=== PATIENT | female | born 1950 | race Caucasian/White ===

== ENCOUNTER → 2019-10-27 13:18 | Outpatient (CLI) | payer MEDICARE, OTHER, SELFPAY ==
--- NOTE | ~2019-10-27 | XR_ITS ---
EXAMINATION: XR scoliosis survey EXAM DATE: 10/27/2019 13:55 INDICATION: Scoliosis. TECHNIQUE: Frontal and lateral projections of the thoracic spine, frontal and lateral projection of the lumbosacral spine. Comparison is made to prior examination from 12/22/2013. FINDINGS: There has been interval placement of Miranda rods with supporting pedicular screws at a ll levels from about T3 through the sacrum. There is anterior, interbody fusion L5-S1. Interbody fusi on L4-5. Moderate to severe loss of the disc heights from T12 through L4. There is no hardware fractu re. Lower lumbar laminectomies compared to prior study. Paraspinal soft tissue is unremarkable. There is 5 degrees of thoracolumbar levoscoliosis as measured between T12 and L3. There is 8 degrees of lower lumbar dextroscoliosis. There is about 7 degrees of thoracic dextroscoliosis. IMPRESSION: 1. Mild thoracal lumbar scoliosis. 2. Intact Miranda rods. Reviewed, dictated and finalized at location A.
== END ==
PROVIDERS: PCP Family Medicine
DX: M41.56 Other secondary scoliosis, lumbar region (principal)
CPT/HCPCS: 72082

== ENCOUNTER 2019-12-29 18:08 | Outpatient (CLI) | payer MEDICARE, OTHER, SELFPAY ==
--- NOTE | ~2019-12-29 | XR_ITS ---
EXAMINATION: XR scoliosis survey DATE: 12/29/2019 18:40 INDICATION: Scoliosis due to degenerative disease of spine. TECHNIQUE: Anteroposterior and lateral views of the entire spine were obtained. COMPARISON: Spine radiographs 10/27/2019 FINDINGS: There are hypoplastic ribs at T12. There are changes of posterior fusion procedure from T3 to the sacrum and iliac bones with screws and vertical rods. There are changes of anterior fusion pro cedure at L5-S1 with plate and screws. There are changes of anterior fusion procedure at L4-L5 with i nterbody device. There is 10 degrees dextroscoliosis from T3 to T11 by the Aleman method. There is 13 d egrees levoscoliosis from T11 to L2. There is 2 mm anterolisthesis of C4 on C5 and 3 mm retrolisthesi s of L1 and L2. There is moderate degenerative disc disease in cervical spine, worst at C5-C6 and C6- C7. There is mild to moderately decreased disc height at most levels in thoracic and lumbar spine. Th ere are endplate osteophytes at all levels. IMPRESSION: 1. Moderate spondylosis of the cervical, thoracic, and lumbar spine. 2. Scoliosis. 3. Posterior fusion procedure from T2 to the sacrum and iliac bones. Anterior fusion procedure at L4- L5 and L5-S1. Reviewed, dictated and finalized at location E. IMPRESSION: 1. Moderate spondylosis of the cervical, thoracic, and lumbar spine. 2. Scoliosis. 3. Posterior fusion procedure from T2 to the sacrum and iliac bones. Anterior f usion procedure at L4-L5 and L5-S1.
== END 2019-12-29 18:09 | disposition home or self-care (01) ==
PROVIDERS: PCP Family Medicine
DX: M41.9 Scoliosis, unspecified (principal); M47.892 Other spondylosis, cervical region; M47.894 Other spondylosis, thoracic region; M47.896 Other spondylosis, lumbar region; Z98.1 Arthrodesis status
CPT/HCPCS: 72082

== ENCOUNTER → 2020-05-04 13:31 | Outpatient (CLI) | payer MEDICARE, OTHER, SELFPAY ==
--- NOTE | ~2020-05-04 | XR_ITS ---
EXAMINATION: XR scoliosis survey EXAM DATE: 05/04/2020 14:03 INDICATION: Scoliosis. Miranda rods. TECHNIQUE: Cervicothoracic frontal and lateral projections. Thoracic frontal and lateral projections . Lumbosacral frontal and lateral projections. Comparison is made to prior examination from 12/29/2019 . FINDINGS: There are intact Miranda rods from the upper thoracic region through the sacroiliac join ts. There is lucency surrounding the screws bridging the sacroiliac joints. There is no hardware frac ture. There is interbody fusion L4-5 and L5-S1. Minimal if any scoliosis appreciated. Probable lumbar laminectomies. No endplate erosive change. There is moderate disc disease at C5-6 and C6-7. There is 3 mm anterolisthesis C4 on C5. IMPRESSION: 1. Intact thoracolumbar Miranda rods. 2. Lucency surrounding sacroiliac screws suggesting some component of loosening. Reviewed, dictated and finalized at location G. IMPRESSION: 1. Intact thoracolumbar Miranda rods. 2. Lucency surrounding sacroiliac screws suggesting some component of loosenin g.
== END ==
PROVIDERS: PCP Family Medicine
DX: M41.50 Other secondary scoliosis, site unspecified (principal)
CPT/HCPCS: 72082

== ENCOUNTER 2021-02-08 09:49 | Outpatient (CLI) | payer MEDICARE, OTHER, SELFPAY ==
--- NOTE | ~2021-02-08 | MM_ITS ---
EXAMINATION: MM screening [facility] BI w jef HISTORY: Screening TECHNIQUE: Craniocaudal and mediolateral oblique 3-D tomosynthesis images were obtained and synthetic 2-D images were generated. CAD analysis was submitted and interpreted. COMPARISON: Comparison to multiple prior studies sequentially, with oldest reviewed study dated 09/03. BREAST PARENCHYMAL COMPOSITION: There are scattered areas of fibroglandular density. FINDINGS: There are clustered indeterminate calcifications in the upper outer quadrant of the right b reast, middle third. The left breast is stable without evidence for malignancy. IMPRESSION: 1. Clustered punctate indeterminate right breast calcifications. 2. Magnification views are recommended. BI-RADS Category 0: Incomplete: Needs additional imaging evaluation. Reviewed, dictated and finalized at location A.
== END 2021-02-08 09:50 | disposition home or self-care (01) ==
LOC: ANHIMG 09:52
PROVIDERS: PCP Family Medicine; Visit Provider Family Medicine
DX: Z12.31 Encounter for screening mammogram for malignant neoplasm of breast (principal); R92.8 Other abnormal and inconclusive findings on diagnostic imaging of breast
CPT/HCPCS: 77063; 77067

== ENCOUNTER 2021-03-08 11:26 | Outpatient (CLI) | payer MEDICARE, OTHER, SELFPAY ==
--- NOTE | ~2021-03-08 | MMUS_ITS ---
EXAMINATION: MM diagnostic mammo unilat RT, US breast RT limited HISTORY: Clustered punctate indeterminate right breast calcifications reported on 02/08/2021 screening mammogram TECHNIQUE: Additional 3-D ML tomosynthesis images of the right breast were performed and synthetic 2- D images were generated. Magnification views of right breast CAD analysis was submitted and interpret ed. High resolution upper outer and lower-outer right breast ultrasound was performed. COMPARISON: 02/08/2021 bilateral digital screening mammogram FINDINGS: MAMMOGRAPHIC FINDINGS: Scattered occasional probably benign clustered microcalcifications are identified in the outer right breast. Ultrasound of the upper outer and lower-outer quadrants of the right breast was performed. ULTRASOUND: No suspicious mass or shadowing is identified in the upper outer quadrant or lower outer quadrant of the right breast IMPRESSION: 1. Probably benign microcalcifications 2. 6 month diagnostic right mammogram follow-up is recommended BI-RADS category 3, probably benign findings. Reviewed, dictated and finalized at location A. IMPRESSION: 1. Probably benign microcalcifications 2. 6 month diagnostic right mammogram follow-up is recommended BI-RADS category 3, probably benign findings.
== END 2021-03-08 11:27 | disposition home or self-care (01) ==
LOC: ANHIMG 11:28
PROVIDERS: PCP Family Medicine; Visit Provider Family Medicine
DX: R92.8 Other abnormal and inconclusive findings on diagnostic imaging of breast (principal)
CPT/HCPCS: 76642; 77065

== ENCOUNTER 2021-04-08 12:03 | Emergency (ER) | payer MEDICARE, OTHER, SELFPAY ==
[2021-04-08 12:13] VITALS: BP 140/76; PULSE 61; RESP 16; TEMP 36.6; O2SAT 98
--- NOTE | 2021-04-08 12:17 | ED.EAR ---
HPI - Ear Problem General Chief complaint: Ear Stated complaint: Lightheaded,Bilateral Ears Source: patient, RN notes reviewed and old records reviewed Mode of arrival: ambulatory Limitations: no limitations History of Present Illness HPI Narrative: 70-year-old female who presents to [facility] with complaints of bilateral ear pressure, fullness in ear for the past 2 months with increase in the past 2-3 days, denies any fevers, chills or any sweats.. Patient also reports that she has been experiencing some feelings of being lightheaded when she first arose this morning which did get better after being up for awhile. Patient denies any OTC medications taken for her symptoms. denies sore throat,does have history of sinus allergies and takes Zyrtec daily. Patient states that she has had both of her Covid vaccinations. Location: bilateral Related Data Home Medications Medication Instructions Recorded Confirmed ferrous sulfate 325 mg (65 mg 325 mg PO BID tablet 09/18/19 04/08/21 iron) tablet atenolol 50 mg PO DAILY 04/08/21 04/08/21 atorvastatin 10 mg PO DAILY 04/08/21 04/08/21 baclofen 10 mg PO TID 04/08/21 04/08/21 calcium carbonate-vit D3-min 1 tablet PO DAILY 04/08/21 04/08/21 [Calcium 600 + Minerals] magnesium 800 mg PO DAILY 04/08/21 04/08/21 hp-ayx-TS-Dr-Fu-nnsawsl-lutein 1 tablet PO DAILY 04/08/21 04/08/21 [Centrum] omega-3 fatty acids-fish oil 1 cap PO DAILY 04/08/21 04/08/21 [[place] 3 Fish Oil] temazepam 15 mg PO HS PRN 04/08/21 04/08/21 Allergies Allergy/AdvReac Type Severity Reaction Status Date / Time No Known Allergies Allergy Verified 04/08/21 16:29 Review of Systems Review of Systems: CONSTITUTIONAL: Denies fever, chills, or sweats. EYES: Denies visual changes, redness, or discharge. ENT: Some clear rhinorrhea, no congestion,no sore throat, bilateral ear pressure and feelings of fullness. CARDIOVASCULAR: Denies chest pain, palpitations, or edema. RESPIRATORY: Denies cough or dyspnea. GASTROINTESTINAL: Denies abdominal pain, nausea, vomiting, or diarrhea. GENITOURINARY: Denies dysuria or hematuria. SKIN: Denies rash or itching. MUSCULOSKELETAL: Denies back pain, joint pain, or myalgia. NEUROLOGIC: Denies headache, numbness, or weakness.episode of feeling lightheaded PSYCHIATRIC: Denies anxiety or depression. All systems reviewed & are unremarkable except as noted in HPI and below PMFSH Past Medical History Medical History (Updated 04/08/21 @ 19:25 by Estefany Bennett NP) Acute deep vein thrombosis (DVT) of both lower extremities stop eliquis September 11, 2019 Anemia Arthritis Hyperlipidemia Hypertension Sleep apnea Surgical History Surgical History H/O abdominoplasty H/O discectomy H/O spinal fusion H/O: hysterectomy History of appendectomy History of total bilateral knee replacement Family History Family History Mother Family history of cardiovascular disease Family history of alcoholism Family history of coronary artery disease Father Family history of malignant neoplasm Family history of alcoholism Grandparent Diabetes mellitus Family history of malignant neoplasm of breast in first degree relative Sibling Hypertension Family history of alcoholism Cerebrovascular accident Social History Social History (Updated 04/08/21 @ 19:25 by Estefany Bennett NP) Smoking status: Never smoker Alcohol intake: current Alcohol use details: social Substance use: never Living arrangements: with family Gender identity (if verbalized by the patient): Female Comments At time of signature, agree with nursing past medical, surgical, social and family history. There is no relevant family history pertinent to the presenting complaint Exam Narrative: GENERAL: Well-appearing, well-nourished, and in no acute distress. HEA
== END 2021-04-08 12:54 | disposition home or self-care (01) ==
PROVIDERS: Emergency Provider Registered Nurse; PCP Family Medicine
DX: H69.93 Unspecified Eustachian tube disorder, bilateral (principal); R42 Dizziness and giddiness; Z86.718 Personal history of other venous thrombosis and embolism; M19.90 Unspecified osteoarthritis, unspecified site; E78.5 Hyperlipidemia, unspecified; I10 Essential (primary) hypertension; G47.30 Sleep apnea, unspecified; Z96.653 Presence of artificial knee joint, bilateral
CPT/HCPCS: 99213; G0463

== ENCOUNTER 2022-07-13 01:24 | Day surgery (SDC) | payer MEDICARE, OTHER, SELFPAY ==
[2022-06-27 14:45] VITALS: BMI 31.7
--- NOTE | 2022-07-12 15:21 | PM.HPGS ---
History of Present Illness History of Present Illness Consent: Risks, benefits, and alternatives have been discussed and questions answered. Patient agrees to proceed with procedure. Chief complaint: Hx of colon polyp Narrative: Sri Larsen is a 71 year old female Referred for colon cancer screening. Review of Systems Review of Systems: All systems reviewed & are unremarkable except as noted in HPI and below PMFSH Past Medical History Medical History Acute deep vein thrombosis (DVT) of both lower extremities stop eliquis September 11, 2019 Anemia Arthritis Hyperlipidemia Hypertension Sleep apnea Surgical History Surgical History H/O abdominoplasty H/O discectomy H/O spinal fusion H/O: hysterectomy History of appendectomy History of total bilateral knee replacement Family History Family History Mother Family history of cardiovascular disease Family history of alcoholism Family history of coronary artery disease Father Family history of malignant neoplasm Family history of alcoholism Grandparent Diabetes mellitus Family history of malignant neoplasm of breast in first degree relative Sibling Hypertension Family history of alcoholism Cerebrovascular accident Social History Social History Smoking status: Never smoker Alcohol intake: current Drinks per week: 1 Alcohol use details: social Substance use: never Living arrangements: with family Gender identity (if verbalized by the patient): Female Spiritual care concerns: No Meds Home Medications and Allergies Home Medications Medication Instructions Recorded Confirmed Type ferrous sulfate 325 mg (65 mg 325 mg PO BID 09/18/19 07/13/22 History iron) tablet calcium carb-vit D3-minerals 600 1 tablet PO DAILY 04/08/21 07/13/22 History mg calcium-200 unit tablet (Calcium 600 + Minerals) magnesium 200 mg tablet 800 mg PO DAILY 04/08/21 07/13/22 History jmusmnvp-qqh-PR 0.4 mg-calcium 162 1 tablet PO DAILY 04/08/21 07/13/22 History mg-iron 18 th-adjnvjq-axinse tablet omega-3 fatty acids-fish oil 684 1 cap PO DAILY 04/08/21 07/13/22 History mg-1,200 mg capsule,delayed release atorvastatin 10 mg tablet See Rx Instructions .Route 12/22/21 07/13/22 Rx .COMPLEX #90 tabs temazepam 15 mg capsule 15 mg PO QHS PRN sleep #90 caps 03/10/22 07/13/22 Rx gabapentin 300 mg capsule See Rx Instructions .Route 03/29/22 07/13/22 Rx .COMPLEX #180 caps atenolol 50 mg tablet See Rx Instructions .Route 04/14/22 07/13/22 Rx .COMPLEX #90 tabs baclofen 10 mg tablet See Rx Instructions .Route 04/14/22 07/13/22 Rx .COMPLEX #270 tabs tramadol 50 mg tablet 50 mg PO Q6H PRN pain #120 tabs 05/12/22 07/13/22 Rx Allergies Allergy/AdvReac Type Severity Reaction Status Date / Time No Known Allergies Allergy Verified 07/13/22 10:53 Exam Resp: Auscultation: clear to auscultation bilaterally Cardio: Rate: regular rate Rhythm: regular rhythm GI: GI Palp: Yes Soft to palpation and No Tenderness to palpation present (GI) Assessment and Plan Assessment and plan (1) Colon cancer screening: Code(s): Z12.11 - Encounter for screening for malignant neoplasm of colon Status: Acute Assessment and Plan: Colonoscopy with possible biopsy or polypectomy or cautery or injection of substances.
[2022-07-13 10:56] VITALS: BP 157/70; PULSE 63; RESP 18; TEMP 36.2; O2SAT 100; BMI 31.7
[2022-07-13] MEDS: LACTATED RINGERS 1,000 ML 150 ML IV CONT (11:00)
--- NOTE | 2022-07-13 11:10 | WPDANESEPPF ---
Anes - Initial Pre Proc Eval Procedure: Operation Date: 07/13/22 11:30 Proposed Procedures p Screening Colonoscopy - Ata Nichols MD Date/Time: 07/13/22 11:10 Surgeon: Ata Nichols MD Pre Op Diagnosis: Hx of colon polyp Patient Data Age: 71 Gender: F Height: 1.7 m Weight: 91.9 kg Last Vital Signs Temp 36.2 C L 07/13/22 10:56 Pulse 63 07/13/22 10:56 Resp 18 07/13/22 10:56 BP 157/70 H 07/13/22 10:56 Pulse Ox 100 07/13/22 10:56 O2 Del Method Room Air 07/13/22 10:56 Allergies Allergy/AdvReac Type Severity Reaction Status Date / Time No Known Allergies Allergy Verified 07/13/22 10:53 Home Medications Medication Instructions Recorded Confirmed Type ferrous sulfate 325 mg (65 mg 325 mg PO BID 09/18/19 07/13/22 History iron) tablet calcium carb-vit D3-minerals 600 1 tablet PO DAILY 04/08/21 07/13/22 History mg calcium-200 unit tablet (Calcium 600 + Minerals) magnesium 200 mg tablet 800 mg PO DAILY 04/08/21 07/13/22 History jxhtinlu-nut-KO 0.4 mg-calcium 162 1 tablet PO DAILY 04/08/21 07/13/22 History mg-iron 18 lt-uklyvpm-cyskaq tablet omega-3 fatty acids-fish oil 684 1 cap PO DAILY 04/08/21 07/13/22 History mg-1,200 mg capsule,delayed release atorvastatin 10 mg tablet See Rx Instructions .Route 12/22/21 07/13/22 Rx .COMPLEX #90 tabs temazepam 15 mg capsule 15 mg PO QHS PRN sleep #90 caps 03/10/22 07/13/22 Rx gabapentin 300 mg capsule See Rx Instructions .Route 03/29/22 07/13/22 Rx .COMPLEX #180 caps atenolol 50 mg tablet See Rx Instructions .Route 04/14/22 07/13/22 Rx .COMPLEX #90 tabs baclofen 10 mg tablet See Rx Instructions .Route 04/14/22 07/13/22 Rx .COMPLEX #270 tabs tramadol 50 mg tablet 50 mg PO Q6H PRN pain #120 tabs 05/12/22 07/13/22 Rx Patient hx anesthesia problems: none Family hx anesthesia problems: none Results Review: All pre-operative results and documents have been reviewed as part of the pre-operative evaluation. [facility] Past Medical History Medical History Acute deep vein thrombosis (DVT) of both lower extremities stop eliquis September 11, 2019 Anemia Arthritis Hyperlipidemia Hypertension Sleep apnea Surgical History Surgical History H/O abdominoplasty H/O discectomy H/O spinal fusion H/O: hysterectomy History of appendectomy History of total bilateral knee replacement Family History Family History Mother Family history of cardiovascular disease Family history of alcoholism Family history of coronary artery disease Father Family history of malignant neoplasm Family history of alcoholism Grandparent Diabetes mellitus Family history of malignant neoplasm of breast in first degree relative Sibling Hypertension Family history of alcoholism Cerebrovascular accident Social History Social History Smoking status: Never smoker Alcohol intake: current Drinks per week: 1 Alcohol use details: social Substance use: never Living arrangements: with family Gender identity (if verbalized by the patient): Female Spiritual care concerns: No Anes - Eval Final PreProcedure Day of Procedure 07/13/22 11:10 Patient weight: obese Heart: regular rate and rhythm Lungs: clear to auscultation Airway: Mallampati scale class II Neurological: alert and oriented Last oral intake: >/= 8 hours ASA classification: III Emergent: no Anesthetic plan: proceed Anesthesia type and monitoring: general GIVS and standard monitoring Results Review: All pre-operative results and documents have been reviewed as part of the pre-operative evaluation. Informed Consent: The patient's anesthetic plan and its attendant risks and benefits were discusse
[2022-07-13 11:50] VITALS: BP 115/54; PULSE 64; RESP 18; O2SAT 98
[2022-07-13 12:00] VITALS: BP 146/71; PULSE 58; RESP 19; O2SAT 100
[2022-07-13 12:10] VITALS: BP 152/75; PULSE 59; RESP 16; O2SAT 100
== END 2022-07-13 12:28 | disposition home or self-care (01) ==
PROVIDERS: PCP Emergency Medicine; Visit Provider Internal Medicine Gastroenterology
PROC: 0DJD8ZZ Inspection of Lower Intestinal Tract, Via Natural or Artificial Opening Endoscopic (ICD-10-PCS; CPT 45378; principal; 2022-07-13 11:30)
DX: Z12.11 Encounter for screening for malignant neoplasm of colon (principal); K57.30 Diverticulosis of large intestine without perforation or abscess without bleeding; Z86.010 Personal history of colon polyps; D64.9 Anemia, unspecified; E78.5 Hyperlipidemia, unspecified; I10 Essential (primary) hypertension; G47.30 Sleep apnea, unspecified; Z86.718 Personal history of other venous thrombosis and embolism; Z82.49 Family history of ischemic heart disease and other diseases of the circulatory system; Z81.1 Family history of alcohol abuse and dependence; F10.90 Alcohol use, unspecified, uncomplicated; E66.9 Obesity, unspecified; Z68.31 Body mass index [BMI] 31.0-31.9, adult; Z79.891 Long term (current) use of opiate analgesic; Z79.899 Other long term (current) drug therapy
CPT/HCPCS: G0105; J2704; J7120

== ENCOUNTER 2022-11-23 08:33 | Outpatient (CLI) | payer MEDICARE, SELFPAY ==
[2022-11-23 18:41] LABS: Alanine Aminotransferase 30 U/L (6-35); Albumin Level 4.2 g/dL (3.5-5.1); Alkaline Phosphatase 72 U/L (38-126); Anion Gap 7 mmol/L (8-16); Aspartate Amino Transferase 31 U/L (14-36); Bilirubin,Total 0.5 mg/dL (0.2-1.3); Blood Urea Nitrogen 21 mg/dL (7-17); Carbon Dioxide 27 mmol/L (22-30); Chloride 107 mmol/L (98-107); Cholesterol 148 mg/dL (0-200); Estimated Glomerular Filt Rate 54; Glucose 105 mg/dL (65-110); HDL Direct 52 mg/dL; Potassium 4.2 mmol/L (3.4-5.0); Sodium 141 mmol/L (137-145); Triglycerides 131 mg/dL (<150)
[2022-11-23 18:52] LABS: LDL Cholesterol Direct 63 mg/dL
== END 2022-11-23 08:34 | disposition home or self-care (01) ==
LOC: ANHGOSHLAB 08:36
PROVIDERS: PCP Emergency Medicine; Visit Provider Emergency Medicine
DX: I10 Essential (primary) hypertension (principal); E66.9 Obesity, unspecified
CPT/HCPCS: 36415; 80053; 80061

== ENCOUNTER 2023-01-07 21:22 | Emergency (ER) | payer MEDICARE, SELFPAY ==
[2023-01-07 21:29] VITALS: BP 150/65; PULSE 92; RESP 18; TEMP 36.5; O2SAT 98
[2023-01-07 21:57] VITALS: PULSE 85
[2023-01-07 21:58] VITALS: BP 134/77; PULSE 86; RESP 16; TEMP 36.6; O2SAT 98
[2023-01-07 22:09] LABS: Basophils Absolute Auto 0.1 K/mm3 (0.0-0.1); Eosinophils Absolute Auto 0.2 K/mm3 (0-0.3); Eosinophils Percent Auto 2.6 % (0-4.4); Immature Granulocyte Absolute 0.02 K/mm3 (0.00-0.031); Immature Granulocyte Percent A 0.3 % (0-0.5); Lymphocytes Absolute Auto 1.87 K/mm3 (0.9-3.2); Lymphocytes Percent Auto 26.9 % (18.3-44.2); Mean Corpuscular HGB Conc 32.4 g/dl (32-36); Mean Corpuscular Hemoglobin 28.3 pg (26-34); Mean Corpuscular Volume 87.3 fl (80-100); Mean Platelet Volume 10.6 fl (7.4-10.4); Monocytes Absolute Auto 0.5 K/mm3 (0.1-0.6); Monocytes Percent Auto 7.2 % (2.6-8.5); Neutrophils Absolute Auto 4.3 K/mm3 (1.3-6.7); Platelet Count Result 221 k/mm3 (150-375); Red Blood Count 4.24 M/mm3 (4.2-5.4); Red Cell Distribution Width 14.8 % (11.5-14.5)
--- NOTE | 2023-01-07 22:18 | ED.GENADULT ---
HPI - General Adult General Chief complaint: Unspecified Stated complaint: not acting right. took meds and had wine. Time Seen by Provider: 01/07/23 21:33 History of Present Illness HPI narrative: 72-year-old female presented to the emergency department for evaluation of altered mental status. Family states that the patient seemed more confused prior to arrival but that the episode has resolved. Patient states that at approximately 745 she was drinking red wine and did take her nighttime sleeping pill, temazepam. Family states that approximately 8:30 PM patient began becoming more somnolent. Patient does not recall the episode. Upon arrival to the ED family states that the patient is more alert and appropriate and is currently at her baseline. Patient denies any complaints at this time. Patient does have a prior history of a spinal infection and is on doxycycline twice daily forever. Related Data Home Medications Medication Instructions Recorded Confirmed ferrous sulfate 325 mg (65 mg 325 mg PO BID 09/18/19 10/10/22 iron) tablet calcium carb-vit D3-minerals 600 1 tablet PO DAILY 04/08/21 10/10/22 mg calcium-200 unit tablet (Calcium 600 + Minerals) magnesium 200 mg tablet 800 mg PO DAILY 04/08/21 10/10/22 htnyhoph-ijp-FZ 0.4 mg-calcium 162 1 tablet PO DAILY 04/08/21 10/10/22 mg-iron 18 ry-etvdgkb-egetvp tablet omega-3 fatty acids-fish oil 684 1 cap PO DAILY 04/08/21 10/10/22 mg-1,200 mg capsule,delayed release Allergies Allergy/AdvReac Type Severity Reaction Status Date / Time No Known Allergies Allergy Verified 10/10/22 11:29 Review of Systems Review of Systems: All systems reviewed & are unremarkable except as noted in HPI and below [facility] Past Medical History Medical History Acute deep vein thrombosis (DVT) of both lower extremities stop eliquis September 11, 2019 Anemia Arthritis Hyperlipidemia Hypertension Sleep apnea Surgical History Surgical History H/O abdominoplasty H/O discectomy H/O spinal fusion H/O: hysterectomy History of appendectomy History of total bilateral knee replacement Family History Family History Mother Family history of cardiovascular disease Family history of alcoholism Family history of coronary artery disease Father Family history of malignant neoplasm Family history of alcoholism Grandparent Diabetes mellitus Family history of malignant neoplasm of breast in first degree relative Sibling Hypertension Family history of alcoholism Cerebrovascular accident Social History Social History Smoking status: Never smoker Alcohol intake: current Drinks per week: 1 Alcohol use details: social Substance use: never Lack of Transportation: No Lack of Food: Never True Current Housing: I Have Housing Concerned About Future Housing: No Difficulty Paying Gas/Electric Bills: No Difficulty Paying for Meds: No Currently Unemployed: No Education: High School Diploma/GED Difficulty w/ Childcare or Family Care: No Living arrangements: with family Gender identity (if verbalized by the patient): Female Spiritual care concerns: No Exam Narrative: APPEARANCE: Well appearing, no pain, no distress, well-nourished. HEAD: normocephalic, atraumatic. EYES: PERRLA/EOMI, conjunctivae clear. NOSE: Normal no drainage EARS:TMS clear with good light reflex. THROAT: Pharynx clear, no exudate. NECK: Supple. No adenopathy, no masses. RESPIRATORY: Airway patent, respirations nonlabored. Clear to auscultation bilaterally, no rales, rhonchi, wheezing. CARDIOVASCULAR: Regular rate and rhythm without murmurs rubs or gallops. ABDOMINAL: Soft, nontender, nondistended, normal bowel sounds MUSCULOSKELETA
[2023-01-07 22:19] LABS: Alanine Aminotransferase 29 U/L (6-35); Albumin Level 4.4 g/dL (3.5-5.1); Alkaline Phosphatase 73 U/L (38-126); Anion Gap 11 mmol/L (8-16); Aspartate Amino Transferase 38 U/L (14-36); Bilirubin,Total 0.4 mg/dL (0.2-1.3); Blood Urea Nitrogen 29 mg/dL (7-17); Calcium 9.3 mg/dL (8.4-10.2); Carbon Dioxide 23 mmol/L (22-30); Chloride 107 mmol/L (98-107); Estimated CRCL calculation 39 ml/min; Estimated Glomerular Filt Rate 40; Glucose 89 mg/dL (65-110); Potassium 3.7 mmol/L (3.4-5.0); Sodium 141 mmol/L (137-145)
[2023-01-07] MEDS: SODIUM CHLORIDE 0.9% IV 1,000 ML 999 ML IV CONT (22:50)
[2023-01-07 23:09] VITALS: BP 109/62; PULSE 81; RESP 14; O2SAT 100
--- NOTE | 2023-01-07 23:54 | PC.NURSE ---
Patient attempted to urinate and was unable. Patient stated she was ok with a straight catheter. Notified Dr. Parrish.
--- NOTE | 2023-01-08 00:10 | PC.NURSE ---
When attempting to use a straight catheter on the patient two nurses noticed that the patient my have a uterine or bladder or both prolapse. The catheter would not advance and no urine was obtained. Patient stated to nurse that I've been told my bladder is lower before . Notified Dr. Parrish.
[2023-01-08 00:27] LABS: Appearance Urine Clear (Clear); Bilirubin Urine Negative (Negative); Blood Urine Negative (Negative); Color Urine Yellow (Yellow); Glucose Urine UA Negative (Negative); Ketones Urine Negative (Negative); Leukocyte Esterase Ur Negative LEU/UL (Negative); Nitrate Urine Negative (Negative); Protein Urine Negative (Negative); Specific Grav Ur 1.019 (1.001-1.035); Urobilinogen Urine 0.2 mg/dL (<2.0); pH Urine 5.5 (5.0-9.0)
[2023-01-08 00:51] LABS: Add Urine Microscopic? NO
[2023-01-08 01:09] VITALS: BP 150/82; PULSE 80; RESP 14; TEMP 36.6; O2SAT 100
== END 2023-01-08 01:10 | disposition home or self-care (01) ==
PROVIDERS: Emergency Provider Emergency Medicine; PCP Emergency Medicine
DX: N17.9 Acute kidney failure, unspecified (principal); N81.10 Cystocele, unspecified; E78.5 Hyperlipidemia, unspecified; I10 Essential (primary) hypertension; G47.30 Sleep apnea, unspecified; M19.90 Unspecified osteoarthritis, unspecified site; Z86.718 Personal history of other venous thrombosis and embolism; Z86.2 Personal history of diseases of the blood and blood-forming organs and certain disorders involving the immune mechanism; Z98.1 Arthrodesis status; Z90.710 Acquired absence of both cervix and uterus; Z96.653 Presence of artificial knee joint, bilateral
CPT/HCPCS: 36415; 80053; 81003; 85025; 96360; 96361; 99283; J7030

== ENCOUNTER → 2023-07-26 11:52 | Outpatient (CLI) | payer MEDICARE, SELFPAY ==
--- NOTE | ~2023-07-26 | XR_ITS ---
AP and lateral views of the right tibia/fibula Clinical History: Pain Findings: No acute fracture or dislocation is seen. Osseous alignment is anatomic. Right knee arthrop lasty hardware in place, without evidence of hardware complication. Tibiotalar joint is preserved.. S oft tissues are unremarkable. Impression: No acute abnormality. Right knee arthroplasty in place. Reviewed, dictated and finalized at location M. MEAT SALTER Impression: No acute abnormality. Right knee arthroplasty in place.
== END ==
PROVIDERS: PCP Emergency Medicine; Visit Provider Emergency Medicine
DX: M79.604 Pain in right leg (principal)
CPT/HCPCS: 73590

== ENCOUNTER 2023-10-04 09:59 | Outpatient (CLI) | payer MEDICARE, SELFPAY ==
[2023-10-04 19:27] LABS: Alanine Aminotransferase 30 U/L (6-35); Albumin Level 4.2 g/dL (3.5-5.1); Alkaline Phosphatase 67 U/L (38-126); Anion Gap 4 mmol/L (8-16); Aspartate Amino Transferase 53 U/L (14-36); Bilirubin,Total 0.4 mg/dL (0.2-1.3); Blood Urea Nitrogen 28 mg/dL (7-17); Calcium 9.4 mg/dL (8.4-10.2); Carbon Dioxide 28 mmol/L (22-30); Chloride 108 mmol/L (98-107); Cholesterol 149 mg/dL (0-200); Estimated Glomerular Filt Rate 54; Glucose 100 mg/dL (65-110); HDL Direct 42 mg/dL; Potassium 4.4 mmol/L (3.4-5.0); Sodium 140 mmol/L (137-145); Triglycerides 126 mg/dL (<150)
[2023-10-04 19:38] LABS: LDL Cholesterol Direct 73 mg/dL
== END 2023-10-04 10:00 | disposition home or self-care (01) ==
LOC: ANHGOSHLAB 10:02
PROVIDERS: PCP Emergency Medicine; Visit Provider Emergency Medicine
DX: E78.5 Hyperlipidemia, unspecified (principal); I10 Essential (primary) hypertension
CPT/HCPCS: 36415; 80053; 80061

== ENCOUNTER → 2023-10-04 10:19 | Outpatient (CLI) | payer MEDICARE, SELFPAY ==
--- NOTE | ~2023-10-04 | XR_ITS ---
EXAMINATION: [id number] DATE: 10/04/2023 10:55 INDICATION: Left knee pain TECHNIQUE: Two views of the left knee were obtained. COMPARISON: None. FINDINGS: Changes of left knee arthroplasty are noted. Alignment is normal. No fracture is identified . There is a small knee joint effusion. Calcified atherosclerosis is noted. IMPRESSION: 1. No acute osseous abnormality. Reviewed, dictated and finalized at location L. NER CHIEF
== END ==
PROVIDERS: PCP Emergency Medicine; Visit Provider Emergency Medicine
DX: S89.90XA Unspecified injury of unspecified lower leg, initial encounter (principal); X58.XXXA Exposure to other specified factors, initial encounter
CPT/HCPCS: 73560

== ENCOUNTER 2023-10-17 08:38 | Outpatient (CLI) | payer MEDICARE, SELFPAY ==
--- NOTE | ~2023-10-17 | US_ITS ---
Limited Abdominal Sonogram: Real-time sonographic imaging of the right upper quadrant was performed. Clinical History: Abnormal serum enzyme levels Findings: The liver appears normal with no evidence of mass lesion or bile duct dilatation. Main por anabelle vein demonstrates normal direction of flow. The gallbladder is well distended, and appears normal with no evidence of gallstone or wall thickening. The common bile duct measures 4 mm. The visualize d pancreas, aorta, and IVC are unremarkable. Impression: No significant abnormality seen. Reviewed, dictated and finalized at location M. ENGINEER Impression: No significant abnormality seen.
== END 2023-10-17 08:39 ==
LOC: GOSHIMG 08:39
PROVIDERS: PCP Emergency Medicine; Visit Provider Emergency Medicine
DX: R74.8 Abnormal levels of other serum enzymes (principal)
CPT/HCPCS: 76705

== ENCOUNTER 2024-01-24 09:30 | Outpatient (CLI) | payer MEDICARE, SELFPAY ==
[2024-01-24 15:44] LABS: Alanine Aminotransferase 23 U/L (6-35); Albumin Level 4.2 g/dL (3.5-5.1); Alkaline Phosphatase 67 U/L (38-126); Aspartate Amino Transferase 40 U/L (14-36); Bilirubin,Total 0.3 mg/dL (0.2-1.3)
== END 2024-01-24 09:31 | disposition home or self-care (01) ==
PROVIDERS: PCP Emergency Medicine; Visit Provider Emergency Medicine
DX: R74.8 Abnormal levels of other serum enzymes (principal)
CPT/HCPCS: 36415; 80076

== ENCOUNTER 2024-01-29 13:41 | Outpatient (CLI) | payer MEDICARE, SELFPAY ==
[2024-01-29 18:44] LABS: Basophils Absolute Auto 0.1 K/mm3 (0.0-0.1); Basophils Percent Auto 1.3 % (0.2-1.2); Eosinophils Absolute Auto 0.3 K/mm3 (0-0.3); Eosinophils Percent Auto 5.3 % (0-4.4); Hematocrit 42.3 % (37.0-47.0); Hemoglobin 13.3 g/dL (12.0-15.0); Immature Granulocyte Absolute 0.03 K/mm3 (0.00-0.031); Immature Granulocyte Percent A 0.5 % (0-0.5); Lymphocytes Absolute Auto 1.24 K/mm3 (0.9-3.2); Lymphocytes Percent Auto 22.5 % (18.3-44.2); Mean Corpuscular HGB Conc 31.4 g/dl (32-36); Mean Corpuscular Hemoglobin 27.5 pg (26-34); Mean Corpuscular Volume 87.6 fl (80-100); Mean Platelet Volume 11.5 fl (7.4-10.4); Monocytes Absolute Auto 0.4 K/mm3 (0.1-0.6); Monocytes Percent Auto 7.8 % (2.6-8.5); Neutrophils Absolute Auto 3.4 K/mm3 (1.3-6.7); Neutrophils Percent Auto 62.6 % (45.5-73.1); Platelet Count Result 208 k/mm3 (150-375); Red Blood Count 4.83 M/mm3 (4.2-5.4); Red Cell Distribution Width 15.6 % (11.5-14.5); White Blood Count 5.5 K/mm3 (4.5-10.0)
[2024-01-29 18:50] LABS: Alanine Aminotransferase 26 U/L (6-35); Albumin Level 4.6 g/dL (3.5-5.1); Alkaline Phosphatase 71 U/L (38-126); Anion Gap 10 mmol/L (4-12); Aspartate Amino Transferase 38 U/L (14-36); Bilirubin,Total 0.6 mg/dL (0.2-1.3); Blood Urea Nitrogen 24 mg/dL (7-17); CRP 0.7 mg/dL (<1.0); Carbon Dioxide 25 mmol/L (22-30); Chloride 106 mmol/L (98-107); Cholesterol 153 mg/dL (0-200); Estimated Glomerular Filt Rate > 60; Glucose 96 mg/dL (65-110); HDL Direct 58 mg/dL; Potassium 4.6 mmol/L (3.4-5.0); Sodium 141 mmol/L (137-145); Triglycerides 104 mg/dL (<150)
[2024-01-29 18:59] LABS: LDL Cholesterol Direct 76 mg/dL
[2024-01-29 19:19] LABS: Free T4 Free Thyroxine 0.93 ng/mL (0.78-2.19); Vitamin D 25 Hydroxy 48.6 ng/mL
[2024-01-29 19:32] LABS: Hemoglobin A1C 5.6 % (<5.7)
[2024-01-29 19:40] LABS: Appearance Urine Clear (Clear); Bacteria Urine None Seen /hpf; Bilirubin Urine Negative (Negative); Blood Urine Negative (Negative); Color Urine Yellow (Yellow); Glucose Urine UA Negative (Negative); Ketones Urine Negative (Negative); Leukocyte Esterase Ur 1+ LEU/UL (Negative); Need Manual Microscopic Reviewed; Nitrate Urine Negative (Negative); Non Pathogenic Casts 0-2; Protein Urine Negative (Negative); RBC Urine 0-2 /hpf (0-2); Specific Grav Ur 1.011 (1.001-1.035); Squamous Epithelial Cell Urine Moderate /hpf (Few); Urobilinogen Urine 0.2 mg/dL (<2.0); WBC Urine 0-5 /hpf (0-3); pH Urine 5.5 (5.0-9.0)
[2024-01-29 19:42] LABS: Add Urine Microscopic? YES
[2024-01-30 11:18] LABS: FSH 78.7 mIU/mL
[2024-01-30 16:52] LABS: Insulin Level Total 11.6 uIU/mL
[2024-01-31 01:29] LABS: Triiodothyronine T3 Free 2.7 pg/mL (2.3-4.2)
[2024-02-02 10:28] LABS: Testosterone Total 9 ng/dL (2-45)
[2024-02-04 10:48] LABS: Z Score Female -0.8 SD (-2.0 - +2.0)
[2024-02-05 23:23] LABS: Estrogen 51 pg/mL
== END 2024-01-29 13:42 | disposition home or self-care (01) ==
PROVIDERS: PCP Emergency Medicine; Visit Provider Family Medicine
DX: R73.01 Impaired fasting glucose (principal); E66.9 Obesity, unspecified; E55.9 Vitamin D deficiency, unspecified; R74.8 Abnormal levels of other serum enzymes; I10 Essential (primary) hypertension; T78.40XA Allergy, unspecified, initial encounter
CPT/HCPCS: 36415; 80053; 80061; 81001; 82306; 82607; 82672; 83001; 83036; 83525; 84305; 84403; 84439; 84443; 84481; 85025; 86140

== ENCOUNTER 2025-02-03 08:35 | Outpatient (CLI) | payer MEDICARE, SELFPAY ==
[2025-02-03 13:30] LABS: Alanine Aminotransferase 21 U/L (6-35); Alkaline Phosphatase 41 U/L (38-126); Anion Gap 8 mmol/L (4-12); Aspartate Amino Transferase 43 U/L (14-36); Bilirubin,Total 0.4 mg/dL (0.2-1.3); Blood Urea Nitrogen 37 mg/dL (7-17); Calcium 9.6 mg/dL (8.4-10.2); Carbon Dioxide 26 mmol/L (22-30); Chloride 107 mmol/L (98-107); Cholesterol 202 mg/dL (0-200); Estimated Glomerular Filt Rate > 60; Glucose 87 mg/dL (65-110); HDL Direct 47 mg/dL; Potassium 4.2 mmol/L (3.4-5.0); Sodium 141 mmol/L (137-145); Total Protein 7.5 g/dL (6.3-8.2); Triglycerides 103 mg/dL (<150)
[2025-02-03 13:42] LABS: LDL Cholesterol Direct 111 mg/dL
== END 2025-02-03 08:36 | disposition home or self-care (01) ==
LOC: ANHGOSHLAB 08:35
PROVIDERS: PCP Family Medicine; Visit Provider Family Medicine
DX: E78.5 Hyperlipidemia, unspecified (principal)
CPT/HCPCS: 36415; 80053; 80061

== ENCOUNTER 2025-08-03 09:57 | Outpatient (CLI) | payer MEDICARE, SELFPAY ==
--- OUTSIDE RECORDS SUMMARY | 2025-03-17 03:00 | XMS_ITS ---
Author Organization [facility] [place] ([address]) Address [address] [place] [address] Care Team Providers Care Interior Design Program Chair Name Role Phone Oz Mariscal Unavailable [phone] REASON FOR VISIT [facility] Weight Loss, on Tirzepatide, adequate appetite suppression, no side effects, Desired Weight Loss: -40 lbs, +2.9 lbs since last visit (vacation), -37.7 lbs total since beginning weight loss program with Teddy, No history MTC or MEN2 or pancreatitis, Concerned about future DM and OA Medications Medication SIG (Take, Route, Frequency, Duration) Notes Start Date End Date Status Doxycycline Hyclate 100 MG 1 cap(s) orally 2 times a day Active Baclofen 10 MG 1 tab(s) orally 3 times a day Active traMADol HCl 50 MG 1 tab(s) orally every 6 hours Active Temazepam 15 MG 1 cap(s) orally once a day (at bedtime) Active Gabapentin 300 MG 1 cap(s) orally 3 times a day Active Fish Oil 1000 MG 1 cap(s) orally daily Active Atorvastatin Calcium 10 MG 1 tab(s) orally once a day Active Calcium 600 + D 600 MG-5 MCG 1 TAB(S) ORALLY 3 TIMES A DAY *Please review and pick correct strength-formulatio n from Medispan options. If intended option is not shown, discontinue and re-order from Quick Search* Active Social History Sex Assigned At : Social History Observation Description Sex Assigned At Female Vital Signs Height 66.7 in 03/17/2025 Weight 167.3 lbs 03/17/2025 BMI 26.44 kg/m2 03/17/2025 Encounters Encounter Location Date Provider Diagnosis [facility] [place] ([address]) [address] [facility] [address] [place] [address] 03/17/2025 Oz Mariscal Chronic fatigue, unspecified R53.82 ; Abnormal weight gain R63.5 ; Other fatigue R53.83 and Other malaise R53.81 Assessments Encounter Date Diagnosis (ICD Code) Assessment Notes Treatment Notes Treatment Clinical Notes Section Notes 03/17/2025 Chronic fatigue, unspecified (ICD-10 - R53.82) 03/17/2025 Abnormal weight gain (ICD-10 - R63.5) Order metabolic labs and follow-up in 2 weeks to discuss. 03/17/2025 Other fatigue (ICD-10 - R53.83) 03/17/2025 Other malaise (ICD-10 - R53.81) Plan Of Treatment Next Appt Details Follow Up: 1 Week,6 Months, Reason: GLP-1 Agonist Administration Provider Name:Oz Mariscal , 08/18/2025 11:00:00 AM, [address], [facility], [place], [address], Provider Name:Oz Mariscal , 08/18/2025 11:00:00 AM, [address], [facility], [place], [address], Procedure Notes * Category Sub-Category Detail Notes Quell: Weight Management tirzepatide Indication: weig ht loss Concentration: 10 mg/mL Volume Administered: 0.55 mL Dose Administered: 5.5 mg Route: SQ Location: [facility] Frequency: weekly Lot Number/Expiration: Medication Source: [employer] Adverse Reaction: None Lipo Injection(s) Lipo-B (IM): Progress Notes * Laura CARMONAOB: 0 (74 yo F)Acc No.[id number]:03/17/2025 Weight Loss Patient: Sri BECK Provider: Shamika Mariscal MD :1950 A ge:74 Y S ex:Female Date:03/17/2025 Address:[address] [place], [place] [id number] Subjective: * Chief Complaints: * 1 . [facility] Weight Loss, on Tirzepatide, adequate appetite suppression, no side effects. 2. Desired Weight Loss: -40 lbs, +2.9 lbs since last visit (vacation), -37.7 lbs total since beginning weight loss program with [facility]. 3. No history MTC or MEN2 or pancreatitis. 4. Concerned about future DM and OA. * Medical History: * Medications: T aking Calcium 600 + D 600 MG-5 MCG TABLET 1 TAB(S) ORALLY 3 TIMES A DAY , Notes to Pharmacist: *Please review and pick correct strength-formulation from [employer] options. If intended option is not shown, discontinue and re-order from Quick Search*, Taking Fish Oil 1000 MG Capsule 1 cap(s) orally daily , Taking Atorvastatin Calcium 10 MG Tablet 1 tab(s) orally once a day , Taking Temazepam 15 MG Capsule 1 cap(s) orally once a day (at bedtime) , Taking Gabapentin 300 MG Capsule 1 cap(s) orally 3 times a day , Taking Baclofen 10 MG Tablet 1 tab(s) orally 3 times a day , Taking traMADol HCl 50 MG Tablet 1 tab(s) orally every 6 hours , Taking Doxycycline Hyclate 100 MG Capsule 1 cap(s) orally 2 times a day Objective: * Vitals: H t: 66.7 in, Wt: 167.3 lbs, BMI:26.44Index. Assessment: * Assessment: 1. A bnormal weight gain - R63.5 (Primary) 2 . C hronic fatigue, unspecified - R53.82 3 . O ther fatigue - R53.83 4 . O ther malaise - R53.81 Plan: * Treatment: * Procedures: Q uell: Weight Management: tirzepatide I ndication w eight loss C oncentration 1 0 mg/mL V olume Administered 0 .55 mL D ose Administered 5 .5 mg R oute S Q L ocation L UA F requency w eekly L ot Number/Expiration M edication Source [facility] A dverse Reaction N one * Follow Up: 1 Week,6 Months (Reason: GLP-1 Agonist Administration) * Billing Information: * Visit Code: * Procedure Codes: 20611 Quell - Weekly (tirzepatide) Tier 2. * Electronic signature of Doc Mariscal MD, FAAAAI on 08/03/2025 at 11:16 AM ROOM CLERK Sign off status: Pending * Provider: Shamika Mariscal MD Date: 0 03/17/2025 Generated for Gavii nena/Unruly/eTransmitting on: 1 10/04/2024 11:16 AM ROOM CLERK
--- OUTSIDE RECORDS SUMMARY | 2025-04-16 11:30 | XMS_ITS ---
Author Organization [facility] [employer] [place] ([address]) Address [address] [facility] [address] [place] [address] Care Team Providers Care Corporate Safety Director Name Role Phone Davey Oz Krueger [phone] REASON FOR VISIT InBody Follow-up Social History Sex Assigned At : Social History Observation Description Sex Assigned At Female Encounters Encounter Location Date Provider Diagnosis [facility] [employer] [employer] ([address]) [address] [facility] [address] [place] [address] 04/16/2025 Oz Mariscal Plan Of Treatment Next Appt Details Provider Name:Oz Mariscal , 08/18/2025 11:00:00 AM, [address], [address] [address], [place], [address], Provider Name:Oz Mariscal , 08/18/2025 11:00:00 AM, [address], [address] [address], [place], [address], Progress Notes * JONASCordell NeyeDOB: 0 (74 yo F)Acc No.[id number]:04/16/2025 InBody Follow-up Patient: Sri BECK Provider: Shamika Mariscal MD :1950 A ge:74 Y S ex:Female Date:04/16/2025 Address:[address] [place], [place] [phone] Subjective: * Chief Complaints: * 1 . InBody Follow-up. * Medical History: Objective: * Vitals: Assessment: Plan: * Treatment: * Billing Information: * Visit Code: * Procedure Codes: * Electronic signature of Doc Mariscal MD, [facility] on 08/03/2025 at 11:16 AM TACK WELDER Sign off status: Pending * Provider: Shamika Mariscal MD Date: 0 04/16/2025 [facility]/Unruly/Kari on: 1 10/04/2024 11:16 AM TACK WELDER
--- OUTSIDE RECORDS SUMMARY | 2025-04-16 11:45 | XMS_ITS ---
Author Organization [facility] [place] ([address]) Address [address] [place] [address] Care Team Providers Care Fan Balancer Name Role Phone Oz Mariscal [phone] REASON FOR VISIT Tirzepatide follow-up Social History Sex Assigned At : Social History Observation Description Sex Assigned At Female Encounters Encounter Location Date Provider Diagnosis [facility] ([address]) [address] [place] [address] 04/16/2025 Oz Mariscal Plan Of Treatment Next Appt Details Provider Name:Oz Mariscal , 08/18/2025 11:00:00 AM, [address], [address], [place], [address], Provider Name:Oz Mariscal , 08/18/2025 11:00:00 AM, [address], [address] [address], [place], [address], Progress Notes * Ney LARSENeDOB: 0 (74 yo F)Acc No.[id number]:04/16/2025 Weight Loss Patient: Sri BECK Provider: Shamika Mariscal MD :1950 A ge:74 Y S ex:Female Date:04/16/2025 Address:[address] [place], [place] [phone] Subjective: * Chief Complaints: * 1 . Tirzepatide follow-up. * Medical History: Objective: * Vitals: Assessment: Plan: * Treatment: * Billing Information: * Visit Code: * Procedure Codes: * Electronic signature of Doc Mariscal MD, FAAAAI on 08/03/2025 at 11:17 AM CHEMISTRY TECHNOLOGIST Sign off status: Pending * Provider: Shamika Mariscal MD Date: 0 04/16/2025 [facility]/Unruly/Kari on: 1 10/04/2024 11:17 AM CHEMISTRY TECHNOLOGIST
--- OUTSIDE RECORDS SUMMARY | 2025-05-06 07:00 | XMS_ITS ---
Author Organization [facility] [place] ([address]) Address [address] [facility] [address] [place] [address] Care Team Providers Care Return Agent Name Role Phone Davey Oz Krueger [phone] REASON FOR VISIT InBody Follow-up Social History Sex Assigned At : Social History Observation Description Sex Assigned At Female Encounters Encounter Location Date Provider Diagnosis [facility] ([address]) [address] [facility] [address] [place] [address] 05/06/2025 Oz Mariscal Plan Of Treatment Next Appt Details Provider Name:Oz Mariscal , 08/18/2025 11:00:00 AM, [address], [address] [address], [place], [address], Provider Name:Oz Mariscal , 08/18/2025 11:00:00 AM, [address], [address] [address], [place], [address], Progress Notes * JONASCordell NeyeDOB: 0 (74 yo F)Acc No.[id number]:05/06/2025 InBody Follow-up Patient: Sri BECK Provider: Shamika Mariscal MD :1950 A ge:74 Y S ex:Female Date:05/06/2025 Address:[address] [place], [place] [phone] Subjective: * Chief Complaints: * 1 . InBody Follow-up. * Medical History: Objective: * Vitals: Assessment: Plan: * Treatment: * Billing Information: * Visit Code: * Procedure Codes: * Electronic signature of Doc [facility], [facility] on 08/03/2025 at 11:15 AM PHOTORADIO OPERATOR Sign off status: Pending * Provider: Shamika Mariscal MD Date: 0 05/06/2025 Generated for [facility]/Unruly/Venuitting on: 1 10/04/2024 11:15 AM PHOTORADIO OPERATOR
--- OUTSIDE RECORDS SUMMARY | 2025-05-06 07:00 | XMS_ITS ---
Author Organization [facility] [place] ([address]) Address [address] [place] [address] Care Team Providers Care In Home Sales Consultant Name Role Phone Oz Mariscal Unavailable [phone] REASON FOR VISIT [facility] Weight Loss, on Tirzepatide, adequate appetite suppression, no side effects, Desired Weight Loss: -40 lbs, +2.9 lbs since last visit (vacation), -37.7 lbs total since beginning weight loss program with Teddy, No history MTC or MEN2 or pancreatitis, Concerned about future DM and OA Medications Medication SIG (Take, Route, Frequency, Duration) Notes Start Date End Date Status Temazepam 15 MG 1 cap(s) orally once a day (at bedtime) Active Fish Oil 1000 MG 1 cap(s) orally daily Active Atorvastatin Calcium 10 MG 1 tab(s) orally once a day Active Calcium 600 + D 600 MG-5 MCG 1 TAB(S) ORALLY 3 TIMES A DAY *Please review and pick correct strength-formulatio n from Medispan options. If intended option is not shown, discontinue and re-order from Quick Search* Active Gabapentin 300 MG 1 cap(s) orally 3 times a day Active traMADol HCl 50 MG 1 tab(s) orally every 6 hours Active Doxycycline Hyclate 100 MG 1 cap(s) orally 2 times a day Active Baclofen 10 MG 1 tab(s) orally 3 times a day Active Social History Sex Assigned At : Social History Observation Description Sex Assigned At Female Vital Signs Height 66.7 in 05/06/2025 Weight 167.4 lbs 05/06/2025 BMI 26.45 kg/m2 05/06/2025 Encounters Encounter Location Date Provider Diagnosis [facility] [place] ([address]) [address] [facility] [address] [place] [address] 05/06/2025 Oz Mariscal Chronic fatigue, unspecified R53.82 ; Abnormal weight gain R63.5 ; Other fatigue R53.83 and Other malaise R53.81 Assessments Encounter Date Diagnosis (ICD Code) Assessment Notes Treatment Notes Treatment Clinical Notes Section Notes 05/06/2025 Chronic fatigue, unspecified (ICD-10 - R53.82) 05/06/2025 Abnormal weight gain (ICD-10 - R63.5) Order metabolic labs and follow-up in 2 weeks to discuss. 05/06/2025 Other fatigue (ICD-10 - R53.83) 05/06/2025 Other malaise (ICD-10 - R53.81) Plan Of Treatment Next Appt Details Follow Up: 1 Week,6 Months, Reason: GLP-1 Agonist Administration Provider Name:Oz Mariscal , 08/18/2025 11:00:00 AM, [address], [facility], [place], [address], Provider Name:Oz Mariscal , 08/18/2025 11:00:00 AM, [address], [facility], [place], [address], Procedure Notes * Category Sub-Category Detail Notes [facility]: Weight Management tirzepatide Indication: weig ht loss Concentration: 10 mg/mL Volume Administered: 0.55 mL Dose Administered: 5.5 mg Route: SQ Location: [facility] Frequency: weekly Lot Number/Expiration: Medication Source: [employer] Adverse Reaction: None Lipo Injection(s) Lipo-B (IM): Progress Notes * Laura CARMONAOB: 0 (74 yo F)Acc No.[id number]:05/06/2025 Weight Loss Patient: Sri BECK Provider: Shamika Mariscal MD :1950 A ge:74 Y S ex:Female Date:05/06/2025 Address:[address] [place], [place] [phone] Subjective: * Chief Complaints: * 1 . [...] *Please review and pick correct strength-formulation from [employer] options. If intended option is not shown, [...] * Vitals: H t: 66.7 in, Wt: 167.4 lbs, BMI:26.45Index. Assessment: * Assessment: 1. A bnormal weight [...] L ot Number/Expiration M edication Source H [facility] A dverse Reaction N one * Follow Up: 1 Week,6 Months (Reason: GLP-1 Agonist Administration) * Billing Information: * Visit Code: * Procedure Codes: 07405 Quell - Weekly (tirzepatide) Tier 2. * Electronic signature of Doc Mariscal MD, FAAAAI on 08/03/2025 at 11:16 AM ARTIST RELATIONSHIP MANAGER Sign off status: Pending * Provider: Shamika Mariscal MD Date: 0 05/06/2025 Generated for Gavii ng/Unruly/eTransmitting on: 1 10/04/2024 11:16 AM ARTIST RELATIONSHIP MANAGER
--- OUTSIDE RECORDS SUMMARY | 2025-06-04 04:15 | XMS_ITS ---
Author Organization [facility] [employer] & [facility] ([address]) Address [address] [facility] [address] [place] [address] Care Team Providers Care Cylinder Handler Name Role Phone Davey Oz Krueger [phone] REASON FOR VISIT Product or Supplement Purchase Social History Sex Assigned At : Social History Observation Description Sex Assigned At Female Encounters Encounter Location Date Provider Diagnosis [facility] [employer] & [facility] ([address]) [address] [address] 06/04/2025 Oz Mariscal Plan Of Treatment Next Appt Details Provider Name:Oz Mariscal , 08/18/2025 11:00:00 AM, [address], [address] [address], [place], [address], Provider Name:Oz Mariscal , 08/18/2025 11:00:00 AM, [address], [address] [address], [place], [address], Progress Notes * JONASNuha LandasunnyeDOB: 0 (74 yo F)Acc No.[id number]:06/04/2025 Purchase Patient: Sri BECK Provider: Shamika Mariscal MD :1950 A ge:74 Y S ex:Female Date:06/04/2025 Address:[address] [place], [place] [phone] Subjective: * Chief Complaints: * 1 . Product or Supplement Purchase. * Medical History: Objective: * Vitals: Assessment: Plan: * Treatment: * Billing Information: * Visit Code: * Procedure Codes: * Electronic signature of Doc [facility]cal MD, [facility] on 08/03/2025 at 11:16 AM OVERNIGHT CAREGIVER Sign off status: Pending * Provider: Shamika Mariscal MD Date: Generated for Gavii nena/Unruly/Kari on: 10/04/2024 11:16 AM OVERNIGHT CAREGIVER
--- OUTSIDE RECORDS SUMMARY | 2025-06-04 04:15 | XMS_ITS ---
Author Organization [facility] [employer] [facility] [place] ([address]) Address [address] [place] [address] Care Team Providers Care Analysis Consultant Name Role Phone Oz Mariscal Unavailable [phone] REASON FOR VISIT InBody Follow-up Medications Medication SIG (Take, Route, Frequency, Duration) Notes Start Date End Date Status Baclofen 10 MG 1 tab(s) orally 3 times a day Active Fish Oil 1000 MG 1 cap(s) orally daily Active Atorvastatin Calcium 10 MG 1 tab(s) orally once a day Active Temazepam 15 MG 1 cap(s) orally once a day (at bedtime) Active Gabapentin 300 MG 1 cap(s) orally 3 times a day Active traMADol HCl 50 MG 1 tab(s) orally every 6 hours Active Doxycycline Hyclate 100 MG 1 cap(s) orally 2 times a day Active Calcium 600 + D 600 MG-5 MCG 1 TAB(S) ORALLY 3 TIMES A DAY *Please review and pick correct strength-formulatio n from Medispan options. If intended option is not shown, discontinue and re-order from Quick Search* Active Social History Sex Assigned At : Social History Observation Description Sex Assigned At Female Encounters Encounter Location Date Provider Diagnosis [facility] [email or web address] [place] ([address]) [address] [place] [address] 06/04/2025 Oz Mariscal Plan Of Treatment Next Appt Details Provider Name:Oz Mariscal , 08/18/2025 11:00:00 AM, [address], [place], [address], Provider Name:Oz Mariscal , 08/18/2025 11:00:00 AM, [address], [address], [address], Progress Notes * Ney LARSENeDOB: 0 (74 yo F)Acc No.[id number]:06/04/2025 InBody Follow-up Patient: Sri BECK Provider: Shamika Mariscal MD :1950 A ge:74 Y S ex:Female Date:06/04/2025 Address:[address] [place] [address] Subjective: * Chief Complaints: * 1 . InBody Follow-up. * Medical History: * Medications: T aking Calcium 600 + D 600 MG-5 MCG TABLET 1 TAB(S) ORALLY 3 TIMES A DAY , Notes to Pharmacist: *Please review and pick correct strength-formulation from Medispan options. If intended option is [...] 2 times a day Objective: * Vitals: Assessment: Plan: * Treatment: * Billing Information: * Visit Code: * Procedure Codes: * Electronic signature of Doc Mariscal MD, FAAAAI on 08/03/2025 at 11:16 AM INDUSTRIAL ECOLOGY TECHNICIAN Sign off status: Pending * Provider: Shamika Mariscal MD Date: Generated for Gavii nena/Unruly/eTransmitting on: 10/04/2024 11:16 AM INDUSTRIAL ECOLOGY TECHNICIAN
--- OUTSIDE RECORDS SUMMARY | 2025-06-29 04:45 | XMS_ITS ---
Author Organization [facility] [place] [place] ([address]) Address [address] [place] [address] Care Team Providers Care Blower Installer Name Role Phone Oz Mariscal Unavailable [phone] REASON FOR VISIT Tirzepatide follow-up Medications Medication SIG (Take, Route, Frequency, Duration) Notes Start Date End Date Status Calcium 600 + D 600 MG-5 MCG 1 TAB(S) ORALLY 3 TIMES A DAY *Please review and pick correct strength-formulatio n from Medispan options. If intended option is not shown, discontinue and re-order from Quick Search* Active Gabapentin 300 MG 1 cap(s) orally 3 times a day Active Temazepam 15 MG 1 cap(s) orally once a day (at bedtime) Active Atorvastatin Calcium 10 MG 1 tab(s) orally once a day Active Fish Oil 1000 MG 1 cap(s) orally daily Active Doxycycline Hyclate 100 MG 1 cap(s) orally 2 times a day Active traMADol HCl 50 MG 1 tab(s) orally every 6 hours Active Baclofen 10 MG 1 tab(s) orally 3 times a day Active Social History Sex Assigned At : Social History Observation Description Sex Assigned At Female Encounters Encounter Location Date Provider Diagnosis [facility] ([address] [address] [place] [address] 06/29/2025 Oz Mariscal Plan Of Treatment Next Appt Details Provider Name:Oz Mariscal , 08/18/2025 11:00:00 AM, [address], [place], [address], Provider Name:Oz Mariscal , 08/18/2025 11:00:00 AM, [address], [address], [address], Progress Notes * Ney LARSENeDOB: 0 (74 yo F)Acc No.[id number]:06/29/2025 Weight Loss Patient: Sri BECK Provider: Shamika Mariscal MD :1950 A ge:74 Y S ex:Female Date:06/29/2025 Address:[address] [place] [address] Subjective: * Chief Complaints: * 1 . Tirzepatide follow-up. * Medical History: * Medications: T aking [...] MD, FAAAAI on 08/03/2025 at 11:16 AM STILL OPERATOR WHISKEY Sign off status: Pending * Provider: Shamika Mariscal MD Date: 08/29/2024 Generated for Jeremy barrett/Unruly/eTransmitting on: 10/04/2024 11:16 AM STILL OPERATOR WHISKEY
--- OUTSIDE RECORDS SUMMARY | 2025-08-03 11:16 | XMS_ITS | Patient Health Record ---
Author Organization [facility] Address [address] [place] [address] Care Team Providers Care Carroting Machine Offbearer Name Role Phone PAUL SHEN JESS Primary Care Provider Unavail able VIRGIL SILVER Unavailable [phone] Vitor Shields MD Unavailable Unavailable Reason For Referral No Information Medications Medication SIG (Take, Route, Fr equency, Duration) Notes Start Date End Date Status traMADol HCl 50 MG TAKE 1 TO 2 TABLETS BY MOUTH EVERY 6 HOURS NEEDED Active Gabapentin 300 MG 3 capsules Orally Tw ice a day Active atenolol 50 MG Activ e traZODone HCl 50 MG 1 tablet at bedtime as needed Orally Once a day Active Diclofenac Sodium 75 MG 1 tablet Orally Twice a day with food Active Temazepam 15 MG 1 capsule at bedtime as needed Orally Once a day Active Social History Tobacco Use: Social History Observation Description Date Details (start date - stop date) Never Smoker NA - NA Tobacco Use/Smoking Question Answer Notes Are you a nonsmoker Problems Problem Type SNOMED Code ICD Code Onset Dates Problem Status W/U Status Risk Notes Problem Trochanteric bursitis of right hip (662801323575718) Trochanteric bursitis, right hip (M70.61) Active confirmed Problem Sacroiliitis (09358076) Sacroiliitis (M46.1) Active confirmed Problem Trochanteric bursitis of left hip (689498589056051) Trochanteric bursitis of left hip (M70.62) Active confirmed Problem Lumbar radiculopathy (977665344) Lumbar radiculopathy (M54.16) Active confirmed Problem Lumbosacral spondylosis without myelopathy (48914660) Spondylosis of lumbar region without myelopathy or radiculopathy (M47.816) Active confirmed Problem Lumbar post-laminectomy syndrome (896352659) Lumbar post-laminectomy syndrome (M96.1) Active confirmed Problem Thoracic radiculopathy (43315451) Thoracic radiculopathy (M54.14) Active confirmed Problem Pain in limb (73421530) Pain of right leg (M79.604) Active confirmed Plan Of Treatment Pending Test Test Name Order Date MRI : Thoracic without Contrast 01/05/20 18 Insurance Providers Payer Name Payer Address Payer Phone Subscriber Number Group Number Insured Name Patient Relationship to Insured Coverage Start Date Coverage End Date [place] [address] [address] [place] [address] [id number] AUGUSTUS CARMONA Self - patient [place] the [place] [address] [id number] AUGUSTUS CARMONA Self - patient is the insured Medical (General) History Medical History History ICD Code lumbar spondylosis lumbar radiculopathy Surgical History Surgery Date(Month/Year) T12-L4 Fusion 05/2016
--- OUTSIDE RECORDS SUMMARY | 2025-08-03 11:16 | XMS_ITS | Clinical Summary ---
Author Organization [facility] Address [address] [place] [address] Phone Care Team Providers Care Nuclear Spectroscopist Name Role Phone Diego Bunn MD Primary Care Provider [phone] Allergies No known active allergies Medications atenolol (TENORMIN) 50 mg tablet Take 50 mg by mouth daily. 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 Active traZODone (DESYREL) 50 mg tablet Take 50 mg by mouth daily at bedtime. Active aspirin (ECOTRIN EC) 81 mg Tablet, Delayed Release (E.C.) Take 81 mg by mouth daily. Active multivitamin (DAILY-NIEVES) tablet Take 1 Tab by mouth daily. Active cetirizine (ZYRTEC) 10 mg tablet Take 10 mg by mouth daily. Active ascorbic acid (VITAMIN C) 1,000 mg Tablet Take 1,000 mg by mouth daily. Active Fish Oil-[place]-3 Fatty Acids 300-500 mg Capsule Take by mouth. Active FLAXSEED OIL ORAL Take by mouth. Active ALPRAZOLAM (XANAX ORAL) Take by mouth. Active omeprazole (PRILOSEC) 20 mg Capsule, Delayed Release(E.C.) Take 1 Cap (20 mg) by mouth daily with breakfast. 90 Cap 1 10/26/2014 Active tiZANidine (ZANAFLEX) 4 mg Tablet Take 1 Tablet (4 mg) by mouth every 8 hours as needed for Spasm. 60 Tablet 3 03/01/2016 Active temazepam (RESTORIL) 15 mg capsule Take 15 mg by mouth nightly as needed for Insomnia. Active topiramate (TOPAMAX) 25 mg tablet Take 25 mg by mouth daily. Active phentermine (ADIPEX P) 37.5 mg tablet Take 18.775 mg by mouth daily before breakfast. Active pregabalin (LYRICA) 75 mg Capsule Take 75 mg by mouth every 12 hours. Active oxyCODONE-aceta minophen (PERCOCET) 5-325 mg tablet Take 1-2 Tablet by mouth every 4 hours as needed for Pain. Max Daily Amount: 12 Tablet 90 Tablet 0 05/28/2016 Active Active Problems Problem Noted Date Diagnosed Date GERD (gastroesophageal reflux disease) 6 URVASHI (obstructive sleep apnea) 05/25/2016 Essential hypertension 05/25/2016 Arthritis 05/25/2016 H/O methicillin resistant Staphylococcus aureus 05/25/2016 Spondylolisthesis 05/06/2014 Immunizations Immunization Administration Dates Next Due (PREVNAR 13)(6 WKS UP) PNEUM OCOCCAL CONJUGATE (PCV13) 0.5 ML, IM 05/25/2016 Influenza Seasonal Unspecified Formulation IM Family History Medical History Relation Name Comments Colon Cancer Neg Hx Relation Name Status Comments Brother 1 Alive Father Mother Social History Tobacco Use Types Packs/Day Years Used Date Smoking Tobacco: Never Smokeless Tobacco: Never Alcohol Use Standard Drinks/Week Comments Yes 0 (1 standard drink = 0.6 oz pur e alcohol) social Comments No Sex and Gender Information Value Date Recorded Sex Assigned at Not on file Legal Sex Female 10:04 AM CDT Gender Identity Not on file Sexual Orientation Not on file Occupation Industry Job Start Date Job End Date Not on file Not on file Not on file Not on file Last Filed Vital Signs Vital Sign Reading Time Taken Comments Blood Pressure 99/57 05/28/2016 8:24 AM CDT Pulse 87 05/28/2016 8:24 AM CDT Temperature 36.7 C (98 F) 05/28/2016 8:24 AM CDT Respiratory Rate 18 05/28/2016 8:24 AM CDT Oxygen Saturation 99% 05/28/2016 8:24 AM CDT Inhaled Oxygen Concentration - - Weight 77.2 kg (170 lb 4 oz) 05/25/2016 5:45 PM CDT Height 171.5 cm (5' 7.5) 05/25/2016 5:45 PM CDT Body Mass Index 26.27 05/25/2016 5:45 PM CDT Plan of Treatment Health Maintenance Due Date Last Done Comments DTAP/TDAP/TD VACCINES (1 - Tdap) 1968 COLORECTAL SCREENING 1994 Colorectal Cancer Screening 1994 FIT-DNA Q 3 years 1994 FIT/FOBT Q 1 year 1994 Flex Sig/CT Colonography Q 5 years 1994 ZOSTER VACCINE (1 of 2) 10/24/1999 OSTEOPOROSIS SCREENING 2014 PNEUMOCOCCAL VACCINE 50+ YEA RS (2 of 2 - PCV20 or PCV21) 05/25/2017 05/25/2016 RSV VACCINE (60+ or ) (1 - 1-dose 75+ series) 2024 INFLUENZA VACCINE (#1) 2025 03/25/2016 Medical Devices Implanted Type Area Aircraft Engine Cylinder Mechanic Device Identifier Shelf Expiration Date Model / Serial / Lot Capstone Spine Cage Implanted:Qty : 1 on 05/05/2014 by Angelo Brown MD at [facility] Cage N/A: Spine Lumbar [employer] 06/03/2021 [id number] / / [id number] Paste Bone Dbm Plus 5ml [id number] - [id number] Implanted:Qty : 1 on 05/05/2014 by Angelo Brown MD at [facility] Putty N/A: Spine Lumbar [employer] INC 09/29/2015 [id number] / [id number] / Levon Xpdm 5.5 Ti Str 480mm [id number] - Sload No. 410 Sterilized 05/19/2016 Implanted:Qty : 1 on 05/25/2016 by Vitor Shields MD at [facility] Levon N/A: Spine Lumbar J&J- DEPUY SPINE [employer] [id number] / LOAD NO. 410 STERILIZED 05/19/2016 / Screw Xpdm Verse 7x45mm 7 - Sload No. 410 Serilized 05/29/2016 Implanted:Qty : 9 on 05/25/2016 by Vitor Shields MD at [facility] Screw N/A: Spine Lumbar J&J- DEPU[employer] [id number] / LOAD NO. 410 SERILIZED 05/29/2016 / Screw Xpdm Verse 6x45mm - Sload No. 410 Serilized 05/29/2016 Implanted:Qty : 2 on 05/25/2016 by Vitor Shields MD at [facility] Screw N/A: Spine Lumbar J&J- DE[employer] [id number] / LOAD NO. 410 SERILIZED 05/29/2016 / Set Screw Xpdm Verse 5.5mm - Sload No. 410 Serilized 05/29/2016 Implanted:Qty : 11 on 05/25/2016 by Vitor Shields MD at [facility] Screw N/A: Spine Lumbar J&J- DEPU[employer]INE [employer] / LOAD NO. 410 SERILIZED 05/29/2016 / Description:All Depuy spinal hardware was processed on requisition,[id number]. Sealant Floseal W/ Adptr 10ml [id number] - [id number] Implanted:Qty : 1 on 05/05/2014 by Angelo Brown MD at [facility] Sealant N/A: Spine Lumbar [employer] 06/12/2015 [id number] / / [id number] Sealant Floseal W/ Adptr 10ml [id number] - [id number] Implanted:Qty : 1 on 05/25/2016 by Vitor Shields MD at [facility] Sealant N/A: Spine Lumbar LINO- [employer] [id number] 09/12/2017 [id number] / / [id number] Cross Cnnctr Xpdm Sfx 5.5 Ti - [id number] Implanted:Qty : 1 on 05/25/2016 by Vitor Shields MD at [facility] Spine N/A: Spine Lumbar J&J- DEPUY SPINE [employer] / / Bilateral Titanium Knees Implanted:(Qu antity not on file) Explanted:(Qu antity not on file) Explanted Type Area Aircraft Engine Cylinder Mechanic Device Identifier Shelf Expiration Date Model / Serial / Lot Levon Solera Ccm Crv [id number] - [id number] Implanted:Qty: 1 on 05/05/2014 at [facility] Explanted:Qty: 1 on 05/25/2016 at [facility] Levon N/A: Spine Lumbar [employer]- SOFAMOR DANEK [id number] / / Description:load # 311 Apr 132013 Levon Solera Ccm Crv [id number] - [id number] Implanted:Qty: 1 on 05/05/2014 at [facility] Explanted:Qty: 1 on 05/25/2016 by Vitor Shields MD at [facility] Levon N/A: Spine Lumbar [employer]- SOFAMOR DANEK [id number] / / Description:load # 311 Apr 132013 Screw Solera Ma 6.5x45mm [id number] - [id number] Implanted:Qty: 4 on 05/05/2014 at [facility] Explanted:Qty: 4 on 05/25/2016 by Vitor Shields MD at [facility] Screw N/A: Spine Lumbar [employer]- SOFAMOR DANEK [id number] / / Description:load # 311 Apr 132013 Set Screw Solera Breakoff [id number] - [id number] Implanted:Qty: 4 on 05/05/2014 at [facility] Explanted:Qty: 4 on 05/25/2016 by Vitor Shields MD at [facility] Screw N/A: Spine Lumbar [employer]- SOFAMOR DANEK [id number] / / Description:load # 311 Apr [id number] Insurance MEDICARE PART A AND B [place] [facility] Advance Directives For more information, please contact: [phone] * Full Code (Latest Code Status on File) Date Activated Date Inactivated Comments 05/25/2016 4:17 PM 05/28/2016 12:32 PM * Full Code Date Activated Date Inactivated Comments 05/25/2016 11:02 AM 05/25/2016 4:17 PM * Full Code Date Activated Date Inactivated Comments 05/25/2016 5:43 AM 05/25/2016 11:02 AM * Full Code Date Activated Date Inactivated Comments 03/01/2016 8:47 AM 03/01/2016 11:43 AM * Full Code Date Activated Date Inactivated Comments 02/09/2016 8:18 AM 02/09/2016 11:21 AM Care Teams Nuclear Spectroscopist Relationship Specialty Start Date End Date Diego Bunn MD [address] [id number] PCP - General Family Practice 04/21/14
--- OUTSIDE RECORDS SUMMARY | 2025-08-03 11:17 | XMS_ITS | Patient Health Record ---
Author Organization [facility] [employer] [place] ([address]) Address [address] [place] [address] Care Team Providers Care Aircraft Maintenance Manager Name Role Phone Oz Mariscal Unavailable [phone] Reason For Referral No Information Medications Medication SIG (Take, Route, Frequency, Duration) [...] History Observation Description Sex Assigned At Female Problems Problem Type SNOMED Code ICD Code Onset Dates Problem Status W/U Status Risk Notes Problem Hypothyroidism (54629752) Hypothyroidism, unspecified (E03.9) Active confirmed Problem Affective psychosis (308405644) Unspecified mood [affective] disorder (F39) Active confirmed Problem Adjustment disorder with anxiety (93677357) Adjustment disorder with anxiety (F43.22) Active confirmed Problem Amnesia (78714149) Other amnesia (R41.3) Active confirmed Problem Malaise (495690475) Other malaise (R53.81) Active confirmed Problem Chronic fatigue syndrome (disorder) (99223626) Chronic fatigue, unspecified (R53.82) Active confirmed Problem Fatigue (78533826) Other fatigue (R53.83) Active confirmed Problem Abnormal weight gain (129831206) Abnormal weight gain (R63.5) Active confirmed Vital Signs Height 66.7 in 06/04/2025 Weight 164.8 lbs 06/04/2025 BMI 26.04 kg/m2 06/04/2025 Encounters Encounter Location Date Provider Diagnosis Formerly [facility] ([address]) [address] [place] [address] 01/01/2025 Oz Mariscal Chronic fatigue, unspecified R53.82 ; Abnormal weight gain R63.5 ; Other fatigue R53.83 and Other malaise R53.81 Formerly [facility] ([address]) [address] [place] [address] 12/18/2024 Oz Mariscal Chronic fatigue, unspecified R53.82 ; Abnormal weight gain R63.5 ; Other fatigue R53.83 and Other malaise R53.81 Formerly [facility] ([address]) [address] [place] [address] 12/04/2024 Oz Mariscal Chronic fatigue, unspecified R53.82 ; Abnormal weight gain R63.5 ; Other fatigue R53.83 and Other malaise R53.81 Formerly [facility] ([address]) [address] [place] [address] 11/20/2024 Oz Mariscal Chronic fatigue, unspecified R53.82 ; Abnormal weight gain R63.5 ; Other fatigue R53.83 and Other malaise R53.81 Formerly [facility] ([address]) [address] [place] [address] 11/10/2024 Oz Mariscal Chronic fatigue, unspecified R53.82 ; Abnormal weight gain R63.5 ; Other fatigue R53.83 and Other malaise R53.81 [facility]ly [facility] ([address]) [address] [place] [address] 10/30/2024 Oz Mariscal Chronic fatigue, unspecified R53.82 ; Abnormal weight gain R63.5 ; Other fatigue R53.83 and Other malaise R53.81 Formerly [facility] ([address]) [address] [place] [address] 10/16/2024 Ozro aMriscal Chronic fatigue, unspecified R53.82 ; Abnormal weight gain R63.5 ; Other fatigue R53.83 and Other malaise R53.81 Formerly [facility] ([address]) [address] [place] [address] 10/06/2024 Oz Davey Chronic fatigue, unspecified R53.82 ; Abnormal weight gain R63.5 ; Other fatigue R53.83 and Other malaise R53.81 Formerly [facility] ([address]) [address] [place] [address] 09/25/2024 Ozro Mariscal Chronic fatigue, unspecified R53.82 ; Abnormal weight gain R63.5 ; Other fatigue R53.83 and Other malaise R53.81 Formerly [facility] ([address]) [address] [place] [address] 09/18/2024 Ozro Mariscal Chronic fatigue, unspecified R53.82 ; Abnormal weight gain R63.5 ; Other fatigue R53.83 and Other malaise R53.81 Formerly [facility] ([address]) [address] [place] [address] 09/11/2024 Ozro Mariscal Chronic fatigue, unspecified R53.82 ; Abnormal weight gain R63.5 ; Other fatigue R53.83 and Other malaise R53.81 Formerly [facility] ([address]) [address] [place] [address] 09/04/2024 Ozro Mariscal Chronic fatigue, unspecified R53.82 ; Abnormal weight gain R63.5 ; Other fatigue R53.83 and Other malaise R53.81 [facility]ly [facility] ([address]) [address] [place] [address] 08/28/2024 Oz Win Chronic fatigue, unspecified R53.82 ; Abnormal weight gain R63.5 ; Other fatigue R53.83 and Other malaise R53.81 [facility] [place] ([address]) [address] [place] [address] 08/21/2024 Oz Win Chronic fatigue, unspecified R53.82 ; Abnormal weight gain R63.5 ; Other fatigue R53.83 and Other malaise R53.81 [facility] [place] ([address]) [address] [place] [address] 08/14/2024 Oz Win Chronic fatigue, unspecified R53.82 ; Abnormal weight gain R63.5 ; Other fatigue R53.83 and Other malaise R53.81 [facility] ([address]) [address] [place] [address] 08/04/2024 Oz Win Chronic fatigue, unspecified R53.82 ; Abnormal weight gain R63.5 ; Other fatigue R53.83 and Other malaise R53.81 [facility] ([address]) [address] [place] [address] 06/04/2025 Oz Win Chronic fatigue, unspecified R53.82 ; Abnormal weight gain R63.5 ; Other fatigue R53.83 and Other malaise R53.81 [facility] [place] ([address]) [address] [place] [address] 06/29/2025 Oz Davey [facility] [place] ([address]) [address] [place] [address] 05/06/2025 Oz Win Chronic fatigue, unspecified R53.82 ; Abnormal weight gain R63.5 ; Other fatigue R53.83 and Other malaise R53.81 [facility]) [address] [place] [address] 03/17/2025 Oz Win Chronic fatigue, unspecified R53.82 ; Abnormal weight gain R63.5 ; Other fatigue R53.83 and Other malaise R53.81 [facility] [place] ([address]) [address] [place] [address] 02/16/2025 Oz Davey Chronic fatigue, unspecified R53.82 ; Abnormal weight gain R63.5 ; Other fatigue R53.83 and Other malaise R53.81 [facility] [place] ([address]) [address] [place] [address] 02/02/2025 Oz Davey Chronic fatigue, unspecified R53.82 ; Abnormal weight gain R63.5 ; Other fatigue R53.83 and Other malaise R53.81 [facility] [place] ([address]) [address] [place] [address] 02/02/2025 Ozro Mariscal [facility] [place] ([address]) [address] [place] [address] 01/01/2025 Ozro Mraiscal [facility] [place] ([address]) [address] [place] [address] 12/04/2024 Ozro Mariscal [facility] [place] ([address]) [address] [place] [address] 10/16/2024 Ozro Mariscal [facility] [place] ([address]) [address] [place] [address] 09/11/2024 Ozro Mariscal [facility] [place] ([address]) [address] [place] [address] 08/14/2024 Ozro Mariscal [facility] [place] ([address]) [address] [place] [address] 03/17/2025 Ozro Mariscal [facility] [place] ([address]) [address] [place] [address] 06/04/2025 Ozro Mariscal [facility] [place] ([address]) [address] [place] [address] 05/06/2025 Oz Davey [facility] [place] ([address]) [address] [place] [address] 01/15/2025 Oz Mariscal Chronic fatigue, unspecified R53.82 ; Abnormal weight gain R63.5 ; Other fatigue R53.83 and Other malaise R53.81 [facility] [place] ([address]) [address] [place] [address] 06/04/2025 Oz Mariscal Assessments Encounter Date Diagnosis (ICD Code) Assessment Notes Treatment Notes Treatment Clinical Notes Section Notes 08/04/2024 Chronic fatigue, unspecified (ICD-10 - R53.82) 08/04/2024 Abnormal weight gain (ICD-10 - R63.5) Order metabolic labs and follow-up in 2 weeks to discuss. 08/14/2024 Chronic fatigue, unspecified (ICD-10 - R53.82) 08/14/2024 Abnormal weight gain (ICD-10 - R63.5) Order metabolic labs and follow-up in 2 weeks to discuss. 08/21/2024 Chronic fatigue, unspecified (ICD-10 - R53.82) 08/21/2024 Abnormal weight gain (ICD-10 - R63.5) Order metabolic labs and follow-up in 2 weeks to discuss. 08/28/2024 Chronic fatigue, unspecified (ICD-10 - R53.82) 08/28/2024 Abnormal weight gain (ICD-10 - R63.5) Order metabolic labs and follow-up in 2 weeks to discuss. 09/04/2024 Chronic fatigue, unspecified (ICD-10 - R53.82) 09/04/2024 Abnormal weight gain (ICD-10 - R63.5) Order metabolic labs and follow-up in 2 weeks to discuss. 09/11/2024 Chronic fatigue, unspecified (ICD-10 - R53.82) 09/11/2024 Abnormal weight gain (ICD-10 - R63.5) Order metabolic labs and follow-up in 2 weeks to discuss. 09/18/2024 Chronic fatigue, unspecified (ICD-10 - R53.82) 09/18/2024 Abnormal weight gain (ICD-10 - R63.5) Order metabolic labs and follow-up in 2 weeks to discuss. 09/25/2024 Chronic fatigue, unspecified (ICD-10 - R53.82) 09/25/2024 Abnormal weight gain (ICD-10 - R63.5) Order metabolic labs and follow-up in 2 weeks to discuss. 10/06/2024 Chronic fatigue, unspecified (ICD-10 - R53.82) 10/06/2024 Abnormal weight gain (ICD-10 - R63.5) Order metabolic labs and follow-up in 2 weeks to discuss. 10/16/2024 Chronic fatigue, unspecified (ICD-10 - R53.82) 10/16/2024 Abnormal weight gain (ICD-10 - R63.5) Order metabolic labs and follow-up in 2 weeks to discuss. 10/30/2024 Chronic fatigue, unspecified (ICD-10 - R53.82) 10/30/2024 Abnormal weight gain (ICD-10 - R63.5) Order metabolic labs and follow-up in 2 weeks to discuss. 11/10/2024 Chronic fatigue, unspecified (ICD-10 - R53.82) 11/10/2024 Abnormal weight gain (ICD-10 - R63.5) Order metabolic labs and follow-up in 2 weeks to discuss. 11/20/2024 Chronic fatigue, unspecified (ICD-10 - R53.82) 11/20/2024 Abnormal weight gain (ICD-10 - R63.5) Order metabolic labs and follow-up in 2 weeks to discuss. 12/04/2024 Chronic fatigue, unspecified (ICD-10 - R53.82) 12/04/2024 Abnormal weight gain (ICD-10 - R63.5) Order metabolic labs and follow-up in 2 weeks to discuss. 12/18/2024 Chronic fatigue, unspecified (ICD-10 - R53.82) 12/18/2024 Abnormal weight gain (ICD-10 - R63.5) Order metabolic labs and follow-up in 2 weeks to discuss. 01/01/2025 Chronic fatigue, unspecified (ICD-10 - R53.82) 01/01/2025 Abnormal weight gain (ICD-10 - R63.5) Order metabolic labs and follow-up in 2 weeks to discuss. 01/15/2025 Chronic fatigue, unspecified (ICD-10 - R53.82) 01/15/2025 Abnormal weight gain (ICD-10 - R63.5) Order metabolic labs and follow-up in 2 weeks to discuss. 02/02/2025 Chronic fatigue, unspecified (ICD-10 - R53.82) 02/02/2025 Abnormal weight gain (ICD-10 - R63.5) Order metabolic labs and follow-up in 2 weeks to discuss. 02/16/2025 Chronic fatigue, unspecified (ICD-10 - R53.82) 02/16/2025 Abnormal weight gain (ICD-10 - R63.5) Order metabolic labs and follow-up in 2 weeks to discuss. 03/17/2025 Chronic fatigue, unspecified (ICD-10 - R53.82) 03/17/2025 Abnormal weight gain (ICD-10 - R63.5) Order metabolic labs and follow-up in 2 weeks to discuss. 05/06/2025 Chronic fatigue, unspecified (ICD-10 - R53.82) 05/06/2025 Abnormal weight gain (ICD-10 - R63.5) Order metabolic labs and follow-up in 2 weeks to discuss. 06/04/2025 Chronic fatigue, unspecified (ICD-10 - R53.82) 06/04/2025 Abnormal weight gain (ICD-10 - R63.5) Order metabolic labs and follow-up in 2 weeks to discuss. 05/06/2025 Other fatigue (ICD-10 - R53.83) 03/17/2025 Other fatigue (ICD-10 - R53.83) 02/16/2025 Other fatigue (ICD-10 - R53.83) 02/02/2025 Other fatigue (ICD-10 - R53.83) 01/15/2025 Other fatigue (ICD-10 - R53.83) 01/01/2025 Other fatigue (ICD-10 - R53.83) 12/18/2024 Other fatigue (ICD-10 - R53.83) 12/04/2024 Other fatigue (ICD-10 - R53.83) 11/20/2024 Other fatigue (ICD-10 - R53.83) 11/10/2024 Other fatigue (ICD-10 - R53.83) 10/30/2024 Other fatigue (ICD-10 - R53.83) 10/16/2024 Other fatigue (ICD-10 - R53.83) 10/06/2024 Other fatigue (ICD-10 - R53.83) 09/25/2024 Other fatigue (ICD-10 - R53.83) 09/18/2024 Other fatigue (ICD-10 - R53.83) 09/11/2024 Other fatigue (ICD-10 - R53.83) 09/04/2024 Other fatigue (ICD-10 - R53.83) 08/28/2024 Other fatigue (ICD-10 - R53.83) 08/21/2024 Other fatigue (ICD-10 - R53.83) 08/14/2024 Other fatigue (ICD-10 - R53.83) 08/04/2024 Other fatigue (ICD-10 - R53.83) 08/04/2024 Other malaise (ICD-10 - R53.81) 08/14/2024 Other malaise (ICD-10 - R53.81) 08/21/2024 Other malaise (ICD-10 - R53.81) 08/28/2024 Other malaise (ICD-10 - R53.81) 09/04/2024 Other malaise (ICD-10 - R53.81) 09/11/2024 Other malaise (ICD-10 - R53.81) 09/18/2024 Other malaise (ICD-10 - R53.81) 09/25/2024 Other malaise (ICD-10 - R53.81) 10/06/2024 Other malaise (ICD-10 - R53.81) 10/16/2024 Other malaise (ICD-10 - R53.81) 10/30/2024 Other malaise (ICD-10 - R53.81) 11/10/2024 Other malaise (ICD-10 - R53.81) 11/20/2024 Other malaise (ICD-10 - R53.81) 12/04/2024 Other malaise (ICD-10 - R53.81) 12/18/2024 Other malaise (ICD-10 - R53.81) 01/01/2025 Other malaise (ICD-10 - R53.81) 01/15/2025 Other malaise (ICD-10 - R53.81) 02/02/2025 Other malaise (ICD-10 - R53.81) 02/16/2025 Other malaise (ICD-10 - R53.81) 03/17/2025 Other malaise (ICD-10 - R53.81) 05/06/2025 Other malaise (ICD-10 - R53.81) 06/04/2025 Other fatigue (ICD-10 - R53.83) 06/04/2025 Other malaise (ICD-10 - R53.81) Plan Of Treatment Pending Test Test Name Order Date -Uric Acid, Serum 06/05/2024 -Hemoglobin A1c 06/05/2024 -Insulin, Fasting 06/05/2024 -Ferritin, Serum 06/05/2024 -CBC With Differential/Platelet 06/05/20 -C-Reactive Protein, Quant 06/05/2024 -Triiodothyronine (T3),Free,Serum 2023 -T4 and TSH 06/05/2024 -Lipid Panel With LDL/HDL Ratio 06/05/20 -CMP (14) 06/05/2024 -CMP (14) 07/09/2024 -IGF-1 07/09/2024 -IGF-1 06/05/2024 Apo A1 + B + Ratio 06/05/2024 Next Appt Details Provider Name:Oz Mariscal , 08/18/2025 11:00:00 AM, [address], [facility] [address], [place], [address], Provider Name:Oz Mariscal , 08/18/2025 11:00:00 AM, [address], [facility] [address], [place], [address],
--- OUTSIDE RECORDS SUMMARY | 2025-08-03 11:17 | XMS_ITS | Clinical Summary ---
Author Organization [facility] Address [address] [place] [id number] Care Team Providers Care Section Leader Name Role Phone Unavailable Primary Care Provider Unavailabl e Social History Tobacco Use Types Packs/Day Years Used Date Smoking Tobacco: Never Assessed Comments Unknown Sex and Gender Information Value Date Recorded Sex Assigned at Not on file Legal Sex Female 8:59 AM CDT Gender Identity Not on file Sexual Orientation Not on file Plan of Treatment Health Maintenance Due Date Last Done Comments Colorectal Cancer Screening Colonoscopy (10 Years) 1950 Hepatitis C 10/24/1967 DTaP, Tdap and Td Vaccines ( 1 - Tdap) 1968 Pneumococcal Vaccine: 50+ Ye ars (1 of 1 - PCV) 10/24/1999 Zoster Vaccines (1 of 2) 10/24/1999 Annual Medicare Wellness Visit 2014 Dexa Scan (General) 2014 RSV Immunization or 60+ Years (1 - 1-dose 75+ series) 2024 COVID-19 Vaccine ( - 2024-2 6 season) 2025 Influenza Adult (#1) 2025 Hepatitis A Vaccines Aged Out No long er eligible based on patient's age to complete this topic Meningococcal B Vaccine Aged Out No l onger eligible based on patient's age to complete this topic Meningococcal Vaccine Aged Out No esau corine eligible based on patient's age to complete this topic RSV Immunizations Under 20 Months Aged Out No longer eligible based on patient's age to complete this topic Insurance MEDICARE [facility]
--- OUTSIDE RECORDS SUMMARY | 2025-08-03 11:17 | XMS_ITS | Clinical Summary ---
Author Organization [facility] Address [address] [place] [address] Care Team Providers Care Hybrid Tester Name Role Phone Abilio Bunn MD Unavailable Bryson Salgado MD Primary Care Provider [phone] Allergies No known active allergies Medications temazepam (RESTORIL) 15 mg capsuleIndicatio ns:Insomnia Take 15 mg by mouth nightly 1 06/19/2018 Active atenolol (TENORMIN) 50 mg tabletIndication s:hypertension Take 50 mg by mouth every morning Active calcium carbonate-vitami n D3 600 mg(1,500mg) -500 unit capsuleIndicatio ns:Osteoporosis, Prevention of Vitamin D Deficiency,Vitam in D Deficiency Take 1 tablet by mouth 2 (two) times a day Active cetirizine (ZyrTEC) 10 mg tabletIndication s:Seasonal Allergic Rhinitis Take 10 mg by mouth every morning Active baclofen (LIORESAL) 10 mg tablet Take 10 mg by mouth 3 (three) times a day Active traZODone (DESYREL) 50 mg tablet 11/24/2019 Active atorvastatin (LIPITOR) 10 mg tablet 11/14/2019 Active gabapentin (NEURONTIN) 300 mg capsule Take 300 mg by mouth 2 (two) times a day 11/18/2019 Active aspirin 325 mg enteric coated tablet Take 325 mg by mouth daily Active magnesium oxide 400 mg magnesium capsule Take 1 tablet by mouth Active traMADol (ULTRAM) 50 mg tablet 0 03/21/2019 Active TIRZEPATIDE, WEIGHT LOSS, SUBQ Inject under the skin Active doxycycline (VIBRAMYCIN) 100 mg capsule Take 1 tablet/capsu le (100 mg total) by mouth every 12 (twelve) hours 180 tablet/capsul e 3 03/03/2025 03/03/20 26 Active doxycycline monohydrate (MONODOX) 100 mg capsule Take 1 capsule (100 mg total) by mouth daily Active ferrous sulfate 325 mg (65 mg of elemental iron) tablet Take by mouth daily Active fluorometholone (FML) 0.1 % ophthalmic suspension INSTILL ONE DROP INTO LEFT EYE TWO TIMES A DAY FOR TWO WEEKS THEN ONE TIME A DAY FOR TWO WEEKS 03/23/2025 Active omega 8-buc-aqu-fish oil (Fish OiL) 1,000 (120-180) mg capsule daily Active diclofenac DR (VOLTAREN) 75 mg EC tablet Take 1 tablet (75 mg total) by mouth 2 (two) times a day 30 tablet 1 05/07/2025 05/07/20 26 Active Active Problems Problem Noted Date Diagnosed Date Allergic conjunctivitis 05/07/2025 Chronic back pain 05/07/2025 Contact dermatitis 05/07/2025 Dry eye of right side 05/07/2025 Groin strain 05/07/2025 Iron deficiency anemia due to chronic blood loss 05/07/2025 Insomnia, unspecified 05/07/2025 Primary insomnia 05/07/2025 Right shoulder pain 05/07/2025 Rotator cuff disorder 05/07/2025 Stage 3 chronic kidney disease 05/07/2025 Telogen effluvium 05/07/2025 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 Ventral incisional hernia 05/07/2025 Complex renal cyst 05/05/2025 Herniation of rectum into vagina 05/05/2025 Hypercholesterolemia 05/05/2025 Overview (05/05/2025): Phreesia 02/26/2023 Lumbar post-laminectomy syndrome 05/05/2025 Midline cystocele 05/05/2025 Pain of right leg 05/05/2025 Lumbar radiculopathy 05/05/2025 Spondylosis of lumbar region without myelopathy or radiculopathy 05/05/2025 Thoracic radiculopathy 05/05/2025 Trochanteric bursitis of left hip 05/05/2025 Trochanteric bursitis, right hip 05/05/2025 Urinary hesitancy 05/05/2025 intermediate frame tender (current) use of antibiotics Assessment & Plan (06/27/2022 1:07 PM CARE AID): Summary: 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 PLAN - will check CMP, CBC and CRP today - we'll continue Doxycycline 100 mg PO q12h for chronic, indefinite suppression, given the retained HW. --script sent for 6 months. - The patient has been instructed to space out any iron, calcium or multivitamins from the Doxycycline dose (2h prior or 4h after doxyccyline). - Recommend to use of sunscreen and avoiding direct, prolonged sun exposure, due to potential photosensitivity from the Doxycycline. RTC in 12 months. 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 PLAN - will check CMP, CBC and CRP today - we'll continue Doxycycline 100 mg PO q12h for chronic supression, given the retained HW. --script sent for 6 months. - The patient has been instructed to space out any iron, calcium or multivitamins from the Doxycycline dose (2h prior or 4h after doxyccyline). - Recommend to use of sunscreen and avoiding direct, prolonged sun exposure, due to potential photosensitivity from the Doxycycline. RTC in 12 months. 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 PLAN - will check CMP, CBC and CRP today - we'll continue Doxycycline 100 mg PO q12h for chronic supression, given the retained HW. --script sent for 6 months. - The patient has been instructed to space out any iron, calcium or multivitamins from the Doxycycline dose (2h prior or 4h after doxyccyline). - Recommend to use of sunscreen and avoiding direct, prolonged sun exposure, due to potential photosensitivity from the Doxycycline. RTC in 6 months. 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 PLAN - will check CMP, CBC and CRP today - we'll continue Doxycycline 100 mg PO q12h for chronic supression, given the retained HW. --script sent for 6 months. - The patient has been instructed to space out any iron, calcium or multivitamins from the Doxycycline dose (2h prior or 4h after doxyccyline). - Recommend to use of sunscreen and avoiding direct, prolonged sun exposure, due to potential photosensitivity from the Doxycycline. RTC in 6 months. Assessment & Plan (01/11/2020 6:10 PM CDT): -CBC and CMP ordered for medication monitoring; orders sent to [facility] at pt's request. Acute deep vein thrombosis ( DVT) of distal vein of left lower extremity 03/06/2019 Assessment & Plan (03/06/2019 8:27 AM CDT): US doppler 03/05 Duplex showed acute DVT in left lower extremity. Deep veins involved include the soleal sinus veins. All other evaluated veins are patent. -Continue to monitor with serial dopplers Diarrhea 03/04/2019 Assessment & Plan (03/06/2019 8:12 AM CDT): C diff negative. Continued improvement this morning. -prn loperamide MRSA bacteremia 03/03/2019 Assessment & Plan (07/01/2019 1:30 PM CARE AID): 68 y.o. female with h/o spinal stabilization with both anterior-posterior approach (01/16/2019) c/b MRSA bacteremia, lumbar spine abscess w/retained lumbar spine hardware. - s/p 6 weeks of vancomycin from 03/08/19 to 04/13/19 - on PO suppression with doxycycline since 04/14/19 PLAN - Continue chronic PO suppression with Doxycycline 100mg q12h -indefinitively due to retained HW --refill for 6 months given today (Future Pharmacy will be [facility]) - will check CBC/CMP today - While on doxycycline, the patient has been instructed to space out any iron, calcium or multivitamins from the Doxycycline dose (2h prior or 4h after doxycycline). - Recommend to use of sunscreen and avoiding direct, prolonged sun exposure, due to potential photosensitivity from the Doxycycline. RTC in 6 months Assessment & Plan (03/25/2019 6:11 PM CDT): 68 y.o. female with h/o spinal stabilization with both anterior-posterior approach (01/16/2019) c/b MRSA bacteremia, lumbar spine abscess w/retained lumbar spine hardware. Antibiotics: continue vancomycin 750 mg IV every 12 hours Start Date: 03/08/19 Due date: 04/13/19 Duration 3/6 weeks - recommend completing 6 weeks of IV vancomycin due on 04/13/19 --firm stop. - Will get new vac through [facility] given the patient's missed dose yesterday evening. - If new issues with the PICC, we'll arrange for her PICC to be changed. - Continue to follow with Ortho - Once she completes her 6-week course of IV antimicrobials, we'll start chronic PO suppression with Doxycycline 100mg q12h. - While on doxycycline, the patient has been instructed to space out any iron, calcium or multivitamins from the Doxycycline dose (2h prior or 4h after doxyccyline). - Recommend to use of sunscreen and avoiding direct, prolonged sun exposure, due to potential photosensitivity from the Doxycycline. RTC in 3 months Assessment & Plan (03/06/2019 11:18 AM CDT): Unclear source, high suspicion for seeding of hardware (likely spinal, low suspicion for knees at this point; no pain in knees today) given persistently positive bcx despite 72hrs of abx. Less likely UTI, no pulm infiltrate. No apparent skin abscesses - abx: s/p linezolid (03/02-03/03), cefepime (03/02-), flagyl (), now on vancomycin (03/03-), rifampin (03/03- ), CTX (03/04-) -Vanc trough ordered for just before 4th dose morning of 03/07 - will t/b w/ ID re: switching to po abx for Klebsiella UTI -Full spine MRI shows 17.7 by 5.3 rim-enhancing fluid collection in lumbar region -Contacted ortho spine; recommended lateral approach IR guided aspiration with cell count with culture and gram stain -Consulted [facility] IR - spoke w/ rads re: knee MRI: unlikely to be helpful test, needs joint tap if c/f septic arthritis - CRP 407, ESR 120 - Bcx (03/02) 2/2 MRSA, Bcx (03/03) 2/2 MRSA, BCx (03/04) 1/2 Staph aureus, BCx (03/05) NGTD, BCx (03/06) Pending - TTE: no vegetations - ID c/s for MRSA bacteremia Polypharmacy 03/03/2019 Assessment & Plan (03/06/2019 8:10 AM CDT): Patient has history of taking gabapentin 600 BID, percocet, tramadol, trazodone, temazepam, and baclofen 10 TID. Pt's denies hx of alcohol use. UDS opiate negative but responded to narcan in the ED. Currently reports pain well controlled -Currently on gabapentin 100 BID, baclofen 5 BID to avoid withdrawals; can uptitrate prn -OOBTC 3x/day, PT to continue therapy given recent spinal surgery DEV (acute kidney injury) 03/03/2019 Assessment & Plan (03/06/2019 8:13 AM CDT): Cr 2.4 on admission (baseline 0.7) with 1.8 L urine obtained from straight cath. Secondary to postobstructive DEV and sepsis. 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 Surgical incision remains well healed. Back pain stable. Tolerating antibiotics well without adverse effects. - Continue doxycycline 100 mg PO BID for chronic suppression due to retained spinal hardware in the setting of MRSA infection. Plan to continue indefinitely due to risk of recurrent infection - Discussed with patient the rational for treatment, culture results, risk of recurrent infection, signs/symptoms of recurrent infection, and to contact ID clinic with any questions or concerns Assessment & Plan (02/27/2024 8:39 AM CDT): - Clinically doing well on exam today. Surgical incision remains well healed. Back pain stable. Tolerating antibiotics well without adverse effects. - Continue doxycycline 100 mg PO BID for chronic suppression due to retained spinal hardware in the setting of MRSA infection. Plan to continue indefinitely due to risk of recurrent infection - Discussed with patient the rational for treatment, culture results, risk of recurrent infection, signs/symptoms of recurrent infection, and to contact ID clinic with any questions or concerns Assessment & Plan (01/25/2023 1:22 PM CDT): - Clinically doing well on exam today. Surgical incision remains well healed. Back pain stable. Tolerating antibiotics well without adverse effects. - Continue doxycycline 100 mg PO BID for chronic suppression due to retained spinal hardware in the setting of MRSA infection. 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 PLAN - we'll continue Doxycycline 100 mg PO q12h for chronic supression, given the retained HW. --script sent for 6 months. - The patient has been instructed to space out any iron, calcium or multivitamins from the Doxycycline dose (2h prior or 4h after doxyccyline). - Recommend to use of sunscreen and avoiding direct, prolonged sun exposure, due to potential photosensitivity from the Doxycycline. - will check CMP, CBC and CRP today - Flu shot given by her PCP. - Continue to follow with Dr. Gustafson RTC in 6 months. Assessment & Plan (01/11/2020 6:10 PM CDT): -Continue doxycyline 100mg BID for suppression of spinal abscess, s/p I&D with retained hardware, cx+ MRSA. - Discussed with patient the rational for treatment, culture results, risk of recurrent infection, signs/symptoms of recurrent infection, and to contact ID clinic with any questions or concerns -Doxycycline causes photosensitivity and patients should be advised to monitor sun exposure, including increased use of skin-protective clothing and sunscreen, and avoidance of tanning. Doxycycline may result in GI upset. In order to minimize the risk of esophageal ulceration, patients should be advised to take the medication with 8 ounces of water and remain sitting for 30 minutes after taking the pill. Rarely, doxycycline can be associated with pancreatitis, pseudotumor cerebri, elevated LFTs, esophageal ulceration, black tongue syndrome (reversible fungus infection that goes away with drug discontinuation). Divalent cations should be administered 4 hours before or after doxycycline if they are necessary. URVASHI (obstructive sleep apnea) 05/25/2016 Spondylolisthesis 05/06/2014 Resolved Problems Problem Noted Date Diagnosed Date Resolved Date Elevated liver enzymes 03/03/201903/05 Assessment & Plan (03/04/2019 5:17 PM CDT): Elevated ALT, AST, Alk Phos during ICU stay. Bedside RUQ without an obivous obstruction and formal RUQ US was normal and showed no bile duct dilatation -likely cholestasis of sepsis -Currently downtrending Encounters Date Type Department Care Team Description 07/28/2025 Telephone [facility] Medicine Surgery [address] [place] [address] Casi Alvarez MD Medical Question/Miscellane ous 05/07/2025 12:07 PM CDT - 05/07/2025 11:59 PM CDT Hospital Encounter [facility] [address] [place] [id number] Right hip pain Discharge Disposition: Discharge to home or self care 05/07/2025 11:15 AM CDT Office Visit [facility] Medicine Neurosurgery [address] [place] [address] for Advanced Medicine 6th [place] [address] [place] [address] Arcelia Ortega NP Right hip pain (Primary Dx); Low back pain, non-specific 05/07/2025 10:29 AM CDT - 05/07/2025 11:59 PM CDT Hospital Encounter [facility] [address] [place] [id number] Low back pain, non-specific Discharge Disposition: Discharge to home or self care from Last 3 Months Immunizations Immunization Administration Dates Next Due Influenza, Quadrivalent, Rec ombinant, Egg Free, Preservative Free, Intramuscular 04/21/2019 Influenza, Quadrivalent, Spl it, Preservative Free, Intramuscular 04/26/2018 Influenza, Trivalent, IM (MDV) 0,04/21/2019,04/13/2017,04/14,03/25/2016,05/10/2015,05/22/2014 ,05/28/2013,04/30/2012,04/22/2011,1008/2008,05/27/2008,06/05/2007, 6,06/16/2005 Pfizer SARS-CoV-2 Monovalent Vaccination (12+ Yrs) PURPLE 05/19/2021,10/01/2020,09/10/2020 Pneumococcal Conjugate PCV 13 05/25/2016, 015 Pneumococcal Polysaccharide PPV23 10/13/2016 Td, Not Adsorbed 12/05/2002 Tdap 11/04/2014,10/03/2011 ZOSTER LIVE 12/07/2009 Surgical History Surgery Date Site/Laterality Comments HYSTERECTOMY 08/13/2008 - 08/12/2009 SPINAL FUSION 08/13/2014 - 08/12/2015 SPINAL FUSION 86401 TONSILLECTOMY 08/13/1963 - 08/12/1964 Bilateral FOOT SURGERY 08/13/1981 - 08/12/1982 Bilateral JOINT REPLACEMENT 08/13/2010 - 08/12/2011 Bilateral bilateral knees ABDOMINOPLASTY 08/13/1999 - 08/12/2000 CENTRAL LINE PLACEMENT > 5 YEARS 01/15/2019 N/A US GUIDED ASPIRATION ABSCESS HEMATOMA CYST SOFT TISSUE 03/06/2019 N/A Medical History Medical History Date Comments Hypertension Sleep apnea Arthritis AO Scoliosis Neuropathy HTN (hypertension) Deep vein thrombosis (HCC) Osteoarthritis Anemia Family History Medical History Relation Name Comments Alcohol abuse Brother Cancer Brother Alcohol abuse Father Cancer Father 60 Breast cancer Maternal Grandmother Alcohol abuse Mother Stroke Mother Anesthesia problems Neg Hx Relation Name Status Comments Brother Father Maternal Grandmother Mother Social History Tobacco Use Types Packs/Day Years Used Date Smoking Tobacco: Never Smokeless Tobacco: Never Tobacco Cessation:Counseling Given: Not Answered Alcohol Use Standard Drinks/Week Comments Not Currently 0 (1 standard drink = 0.6 oz pur e alcohol) social AUDIT-C Answer Date Recorded Q1: How often do you have a drink containing alcohol? Never 05/07/2025 Q2: How many drinks containi ng alcohol do you have on a typical day when you are drinking? Patient does not drink Q3: How often do you have si x or more drinks on one occasion? Never 05/07/2025 Comments No Sex and Gender Information Value Date Recorded Sex Assigned at Not on file Legal Sex Female 8:17 AM CARE AID Gender Identity Female 11/20/2023 2:17 PM CDT Sexual Orientation Not on file Last Filed Vital Signs Vital Sign Reading Time Taken Comments Blood Pressure 136/71 03/03/2025 10:08 AM CDT Pulse 70 03/03/2025 10:08 AM CDT Temperature 37.2 C (98.9 F) 03/03/2025 10:08 AM CDT Respiratory Rate 16 03/13/2019 11:22 AM CDT Oxygen Saturation 96% 03/03/2025 10:08 AM CDT Inhaled Oxygen Concentration - - Weight 75.3 kg (166 lb) 05/07/2025 11:18 AM CDT Height 168.9 cm (5' 6.5) 05/07/2025 11:18 AM CD T Body Mass Index 26.39 05/07/2025 11:18 AM CDT Plan of Treatment Health Maintenance Due Date Last Done Comments Colon Cancer Screening-Colonoscopy 1950 Depression Screening 1950 Fall Risk Assessment 1950 Hepatitis C Screening 1950 Hepatitis B Screening 10/24/1967 Zoster Vaccine (2 of 3) 02/01/2010 12/07/2009 Well Visit 65+ 2014 Osteoporosis Screening-Bone Density Scan 09/27/2020 09/27/2018 DTaP/Tdap/Td Vaccine (3 - Td or Tdap) 11/04/2024 11/04/2014, 10/03/2011, 12/05/2002 Covid-19 Vaccine (4 - 2024-2 6 season) 2025 05/19/2021, 10/01/2020, 09/10/2020 Influenza Vaccine (#1) 2025 0, 04/21/2019, 04/21/2019, Additional history exists Pneumococcal vaccine 65+ Completed 017, 05/25/2016, 02/18/2015 Breast Cancer Screening-Mammogram Discontinued 01/01/2025, 12/27/2023, 12/21/2022, Additional history exists Medical Devices Implanted Type Area Deputy Administrator Device Identifier Shelf Expiration Date Model / Serial / Lot Knee Replacement Bilateral: Knee Hardware Spine Lumbar Medtronic Sofamor [place] [id number] Infuse 18mm 26mm Absorbable Sponge Sterile Water Syringe Needle - [id number] Implanted:Qty: 1 on 01/16/2019 by Bryson Gustafson MD at [facility] N/A: Spine Lumbar Medtronic Sofamor [place] 01/11/2020 [id number] / / [id number] Medtronic Sofamor [place] [id number] Infuse 18mm 26mm Absorbable Sponge Sterile Water Syringe Needle - [id number] Implanted:Qty: 1 on 01/16/2019 by Bryson Gustafson MD at [facility] N/A: Spine Lumbar Medtronic Sofamor [place] 01/11/2020 [id number] / / [id number] Depuy Spine [id number] Expedium 1 Inner Monoaxial Spine Screw Set Titanium - [id number] Implanted:Qty: 31 on 01/16/2019 by Bryson Gustafson MD at [facility] N/A: Back Depuy Spine [id number] / / Depuy Spine Expedium Verse Unitize Spine Set Screw 5.5 Mm Levon - [id number] Implanted:Qty: 1 on 01/16/2019 by Bryson Gustafson MD at [facility] N/A: Back Depuy Spine [id number] / / Depuy Spine [id number] Expedium Small Hook Spinal Titanium - [id number] Implanted:Qty: 1 on 01/16/2019 by Bryson Gustafson MD at [facility] N/A: Back Depuy Spine [id number] / / Depuy Spine [id number] Expedium Viper 2 5.5mm 480mm Straight Elvon Spinal - [id number] Implanted:Qty: 2 on 01/16/2019 by Bryson Gustafson MD at [facility] N/A: Back Depuy Spine [id number] / / Depuy Spine [id number] Expedium Viper 8mm 80mm Polyaxial Spine Sacral Alar Iliac Screw - [id number] Implanted:Qty: 2 on 01/16/2019 by Bryson Gustafson MD at [facility] N/A: Back Depuy Spine [id number] / / Depuy Spine [id number] Expedium 7.5mm 45mm 1 Innie Polyaxial Spine Screw Bone Titanium - [id number] Implanted:Qty: 1 on 01/16/2019 by Bryson Gustafson MD at [facility] N/A: Back Depuy Spine [id number] / / Depuy Spine [id number] Expedium 7mm 55mm 1 Innie Polyaxial Spine Screw Bone Titanium - [id number] Implanted:Qty: 2 on 01/16/2019 by Bryson Gustafson MD at [facility] N/A: Back Depuy Spine [id number] / / Depuy Spine [id number] Expedium 7mm 50mm 1 Innie Polyaxial Spine Screw Bone Titanium - [id number] Implanted:Qty: 8 on 01/16/2019 by Bryson Gustafson MD at [facility] N/A: Back Depuy Spine [id number] / / Depuy Spine [id number] Expedium 7mm 45mm 1 Innie Polyaxial Spine Screw Bone Titanium - [id number] Implanted:Qty: 1 on 01/16/2019 by Bryson Gustafson MD at [facility] N/A: Back Depuy Spine [id number] / / Depuy Spine [id number] Expedium 6.5mm 35mm Polyaxial Spine Screw Bone Titanium 5.5mm Levon - [id number] Implanted:Qty: 1 on 01/16/2019 by Bryson Gustafson MD at [facility] N/A: Back Depuy Spine [id number] / / Depuy Spine [id number] Expedium 6.5mm 40mm Polyaxial Spine Screw Bone Titanium 5.5mm Levon - [id number] Implanted:Qty: 1 on 01/16/2019 by Bryson Gustafson MD at [facility] N/A: Back Depuy Spine [id number] / / Depuy Spine [id number] Expedium 6.5mm 45mm Polyaxial Spine Screw Bone Titanium 5.5mm Levon - [id number] Implanted:Qty: 3 on 01/16/2019 by Bryson Gustafson MD at [facility] N/A: Back Depuy Spine [id number] / / Depuy Spine [id number] Expedium 6.5mm 50mm Polyaxial Spine Screw Bone Titanium 5.5mm Levon - [id number] Implanted:Qty: 11 on 01/16/2019 by Bryson Gustafson MD at [facility] N/A: Back Depuy Spine [id number] / / Infuse Bone Graft Implanted:Qty: 1 on 01/16/2019 by Bryson Gustafson MD at [facility] N/A: Spine Lumbar Medtronic 11/10/2020 [id number] / / [id number] Filler Bone Void Acupac Advanced Frozen 10cc - [id number] - [id number] Implanted:Qty: 1 on 01/16/2019 by Bryson Gustafson MD at [facility] N/A: Spine Lumbar [employer] 10/18/[id number] / [id number] / Base Implant [id number] 25degree Implanted:Qty: 1 on 01/16/2019 by Bryson Gustafson MD at [facility] N/A: Spine Lumbar Nuvasive Inc [id number] / / Nuvasive Creative Spine Tech [id number] Base 5mm 22.5mm Variable Angle [place] Spinal Titanium Nonsterile - [id number] Implanted:Qty: 1 on 01/16/2019 by Bryson Gustafson MD at [facility] N/A: Spine Lumbar Nuvasive Creative Spine [employer] [id number] / / [employer] -[id number] - [id number] - [id number] Implanted:Qty: 1 on 01/16/2019 by Bryson Gustafson MD at [facility] N/A: Spine Lumbar [employer] 11/12/[id number] / [id number] / [employer] -[id number] - [id number] - [id number] Implanted:Qty: 1 on 01/16/2019 by Bryson Gustafson MD at [facility] N/A: Spine Lumbar [employer] 11/14/[id number] / [id number] / Medtronic Sofamor [place] [id number] Infuse 18mm 26mm Absorbable Sponge Sterile Water Syringe Needle - [id number] Implanted:Qty: 1 on 01/16/2019 by Bryson Gustafson MD at [facility] N/A: Spine Lumbar Medtronic Lance Franklin 01/11/2020 [id number] / / [id number] Procedures Procedure Name Priority Date/Time Associated Diagnosis Comments XR HIP RIGHT 2 OR 3 VIEWS Schedule Routine, Read Routine (OP Routine) 05/07/2025 12:19 PM CDT Right hip pain XR SCOLIOSIS 6 OR MORE VIEWS Schedule Routine, Read Routine (OP Routine) 05/07/2025 10:45 AM CDT Low back pain, non-specific SCREENING MAMMOGRAM BILATERAL W CANDIDO Schedule Routine, Read Routine (OP Routine) 01/01/2025 11:29 AM CDT Screening mammogram, encounter for DEXA AXIAL SKELETON BONE DENSITY 1 OR MORE SITES Schedule Routine, Read Routine (OP Routine) 09/27/2018 8:41 AM CARE AID Osteoporosis, unspecified osteoporosis type, unspecified pathological fracture presence from Last 3 Months or Most Recently Relevant to Health Maintenance Results * XR Hip Right 2 or 3 Views (05/07/2025 12:19 PM CDT) Anatomical Region Laterality Modality Lower Extremities, Hip, Pelvis Right C omputed Radiography 05/07/2025 12:5 9 PM CDT Impressions 05/07/2025 12:59 PM CDT Mild bilateral hip osteoarthritis. Electronically signed by: Altaf Torres M.D. Narrative 05/07/2025 12:59 PM CDT XR HIP RIGHT 2 OR 3 VIEWS HISTORY: Right hip pain. FINDINGS: 3 views of the pelvis and right hip are obtained and interpreted without comparison. There is no fracture. There is mild bilateral hip osteoarthritis. Partially visualized lumbosacral fusion instrumentation with bilateral iliac screws. Alignment is normal. Diffuse atherosclerotic vascular calcification. Procedure Note Altaf Torres MD - 05/07/2025 XR HIP RIGHT 2 OR 3 VIEWS HISTORY: Right hip pain. FINDINGS: 3 views of the pelvis and right hip are obtained and interpreted without comparison. There is no fracture. There is mild bilateral hip osteoarthritis. Partially visualized lumbosacral fusion instrumentation with bilateral iliac screws. Alignment is normal. Diffuse atherosclerotic vascular calcification. IMPRESSION: Mild bilateral hip osteoarthritis. Electronically signed by: Altaf Torres M.D. Arcelia Ortega ARTIST WOODBLOCK IMG XR PROCEDURES Final Result * XR Scoliosis 6 or More Views (05/07/2025 10:45 AM CDT) Anatomical Region Laterality Modality Spine N/A Computed Radiogr aphy 05/07/2025 12:3 7 PM CDT Impressions 05/07/2025 12:37 PM CDT 1. Unchanged posterior instrumented fusion from T3 to S1, combined anterior L4-S1. Simon Patricio (medical student) participated in the interpretation of this imaging study. Electronically signed by: Parish Avila M.D. Narrative 05/07/2025 12:37 PM CDT EXAMINATION: XR SCOLIOSIS 6 OR MORE VIEWS HISTORY: Lumbar pain, status post spinal stabilization (2019), lumbar abscess status post washout. FINDINGS: 2 views of the whole spine and 4 views of the lumbar spine are performed. Comparison is made with radiographs dated 05/04/2020. Unchanged, intact posterior spinal instrumented fusion from T3 to S1, combined anterior L5-S1. Surgical clips are observed overlying the lumbar spine. There is no coronal imbalance. There is positive sagittal imbalance. There is no pelvic obliquity. There is mild multilevel cervical degenerative disc disease and facet arthropathy, worst at C4-C5. Cervical alignment is normal. Procedure Note Parish Avila MD PhD - 05/07/2025 EXAMINATION: XR SCOLIOSIS 6 OR MORE VIEWS HISTORY: Lumbar pain, status post spinal stabilization (2019), lumbar abscess status post washout. FINDINGS: 2 views of the whole spine and 4 views of the lumbar spine are performed. Comparison is made with radiographs dated 05/04/2020. Unchanged, intact posterior spinal instrumented fusion from T3 to S1, combined anterior L5-S1. Surgical clips are observed overlying the lumbar spine. There is no coronal imbalance. There is positive sagittal imbalance. There is no pelvic obliquity. There is mild multilevel cervical degenerative disc disease and facet arthropathy, worst at C4-C5. Cervical alignment is normal. IMPRESSION: 1. Unchanged posterior instrumented fusion from T3 to S1, combined anterior L4-S1. Simon Patricio (medical student) participated in the interpretation of this imaging study. Electronically signed by: Parish Avila M.D. us Arcelia Ortega ARTIST WO[employer]BLOCK IMG XR PROCEDURES Final Result * Screening Mammogram Bilateral W Candido (01/01/2025 11:29 AM CDT) Anatomical Region Laterality Modality Breast Bilateral Mammography Narrative 01/02/2025 2:52 PM CDT Mammogram Technique: Bilateral Digital Breast Tomosynthesis, Bilateral C-view 2D Screening mammogram. Views obtained: bilateral craniocaudal and bilateral mediolateral oblique. Computer Aided Detection was performed. Mammogram Findings: The present examination has been compared to prior imaging studies performed at [facility] on 12/20/2021, 12/21/2022 and 12/27/2023. The breasts are almost entirely fatty. There is no suspicious abnormality in either breast. Impression: There is no mammographic evidence of malignancy. Annual screening mammography is recommended. OVERALL FINAL ASSESSMENT: BI-RADS CATEGORY 1: Negative. Procedure Note Aisha Carmona MD - 01/02/2025 Mammogram Technique: Bilateral Digital Breast Tomosynthesis, Bilateral C-view 2D Screening mammogram. Views obtained: bilateral craniocaudal and bilateral mediolateral oblique. Computer Aided Detection was performed. Mammogram Findings: The present examination has been compared to prior imaging studies performed at [facility] on 12/20/2021, 12/21/2022 and 12/27/2023. The breasts are almost entirely fatty. There is no suspicious abnormality in either breast. Impression: There is no mammographic evidence of malignancy. Annual screening mammography is recommended. OVERALL FINAL ASSESSMENT: BI-RADS CATEGORY 1: Negative. us Self Screening Mammogram IMG MAMMO PROCEDURES Fi nal Result * DEXA Axial Skeleton Bone Density Multi Site (09/27/2018 8:41 AM CARE AID) Anatomical Region Laterality Modality Body N/A Radiographic Maggie ging Narrative 09/29/2018 3:59 PM CARE AID Patient Name: Sri Carmona Date of : 1950 Date of scan: 09/27/2018 Bone mineral density was performed on a HoloTap[employer] Discovery Densitometer. Machine Cross-calibration and Precision studies have been performed with a least significant change of 0.024 g/cm at the spine, 0.020 g/cm at the total proximal femur, and 0.014g/cm at the forearm. HISTORY: This is a 67 y.o. postmenopausal female. Currently on treatment with calcium and vitamin D. With a current complaint of back pain. History of tobacco use: History Smoking Status Never Smoker INDICATIONS: Menopause status and screening for osteoporosis. FINDINGS: BONE MINERAL DENSITY OF THE PROXIMAL FEMUR Bone Mineral Density (BMD) of the left hip total was found to be 1.023 gm/cm2. This corresponds to a T-score standard deviations from the mean of young adults of 0.7. Femoral neck is 0.977 gm/cm2 with a T-score of 1.2. There is no previous study available for comparison. BONE MINERAL DENSITY OF THE FOREARM Bone Mineral density (BMD) of the left proximal 1/3 of the radius measures 0.764gm/cm2. This corresponds to a T-score standard deviations from the mean of young adults of 1.2. There is no previous study available for comparison. A forearm bone density study was performed due to history of spinal surgery with surgical hardware present. SUMMARY: Bone mineral density is near the young adult normal mean with no increased risk for fracture. ADDITIONAL COMMENTS: If the patient has a history of a fragility fracture, a fracture that occurred with trauma equivalent to a fall from a standing position or less, then the diagnosis is osteoporosis. The risk of osteoporotic fracture increases approximately 2-fold for each 1.0 SD decrease in T-score. However, low bone density is not the only risk factor for fracture. Other factors include patient s age, previous osteoporotic fracture or prior fracture as an adult, loss of height of greater than 2 inches, corticosteroid use, risk of falling, risk of injury, and family history of osteoporosis. Not everyone with low bone mineral density has osteoporosis. Osteomalacia and other metabolic bone disorders should also be considered where indicated. Patients who have osteoporosis should be evaluated for specific diseases and conditions (secondary causes) that may cause or contribute to bone loss. Consider repeating this study in 1-2 years to assess the patient s response to treatment, if applicable. It is recommended that any follow up exam be performed on the same machine if possible for better accuracy. DEFINITIONS: Osteoporosis: BMD at or below -2.5 T-score Osteopenia (low bone mass): BMD between -1.0 and-2.5 T-score. The Bone Health Program adopts the following WHO definitions: Osteoporosis: BMD below -2.5 S.D. as compared to the BMD of young normal adults. Osteopenia or Low Bone Mass: BMD between -1.0 and -2.5 S.D. below the BMD of young normal adults. Normal Bone Density: BMD equal to or greater than -1.0 S.D. as compared to the BMD of young normal adults. References: 1) Dylan, Annals of Internal Medicine 114(11): 919-923 (1990) 2) Bazan, Lancet 341 : 72-75 (1992) 3) Black, Journal Bone and Mineral Research 7(6): 633-8 (1991) 4) Jeffrey, Journal Bone and Mineral Research 8(10):1227-33 (1992) The history and data sections of the bone mineral density scan were prepared by Yuly Chirinos) who is accredited by the International Society of Clinical Densitometry. The overall patient assessment and scan interpretation were performed by Yonathan Roberts MD who is certified by the International Society of Clinical Densitometry. [id number] Bryson Gustafson MD IM DXA PROCEDURES Gema l Result from Last 3 Months or Most Recently Relevant to Health Maintenance Insurance MEDICARE [facility] MEDICARE SUPPLEMENT MEDICARE [facility] MEDICARE MEDICARE [facility] MEDICARE SUPPLEMENT Advance Directives For more information, please contact: [phone] * Full Code (Latest Code Status on File) Date Activated Date Inactivated Comments 03/02/2019 2:59 AM 03/13/2019 10:21 PM * Full Code Date Activated Date Inactivated Comments 03/02/2019 12:19 AM 03/02/2019 2:59 AM * Full Code Date Activated Date Inactivated Comments 01/16/2019 8:57 AM 01/21/2019 6:34 PM * Full Code Date Activated Date Inactivated Comments 01/15/2019 9:40 AM 01/15/2019 4:06 PM Care Teams Hybrid Tester Relationship Specialty Start Date End Date Bryson Salgado MD [address] [facility] [address] [place] [address] [place] [id number] PCP - General Family Medicine 12/05/24 Abilio Bunn MD [address] [place] [address] Family Medicine 03/01/19
[2025-08-03 14:10] LABS: Alanine Aminotransferase 30 U/L (6-35); Albumin Level 4.1 g/dL (3.5-5.1); Alkaline Phosphatase 51 U/L (38-126); Anion Gap 6 mmol/L (4-12); Aspartate Amino Transferase 44 U/L (14-36); Bilirubin,Total 0.4 mg/dL (0.2-1.3); Blood Urea Nitrogen 33 mg/dL (7-17); Calcium 9.6 mg/dL (8.4-10.2); Carbon Dioxide 28 mmol/L (22-30); Chloride 107 mmol/L (98-107); Estimated Glomerular Filt Rate > 60; Glucose 104 mg/dL (65-110); Potassium 5.1 mmol/L (3.4-5.0); Sodium 141 mmol/L (137-145); Total Protein 7.8 g/dL (6.3-8.2)
== END 2025-08-03 09:58 | disposition home or self-care (01) ==
PROVIDERS: PCP Family Medicine; Visit Provider Family Medicine
DX: R74.8 Abnormal levels of other serum enzymes (principal)
CPT/HCPCS: 36415; 80053